=== PATIENT | female | born 1975 | race Caucasian/White ===

== ENCOUNTER 2017-11-03 11:17 | Emergency (ER) | payer OTHER ==
[~2017-11-03] VITALS: Ht 170.2 cm; Wt 83.0 kg
[~2017-11-03 11:17] MED LIST: CLINDAMYCIN HC150 M1 PO; IBUPROFEN800 MG PO; NORCO 325 MG-51 TAB PO; PERCOCET 325 MG1 TA2 PO; TORADOL10 MG PO
[2017-11-03 11:22] VITALS: BP 146/79
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
== END 2017-11-03 12:05 ==
LOC: ERH 11:17
DX: S09.90XA Unspecified injury of head, initial encounter (principal); S80.812A Abrasion, left lower leg, initial encounter; V23.4XXA Motorcycle driver injured in collision with car, pick-up truck or van in traffic accident, initial encounter
CPT/HCPCS: 99282

== ENCOUNTER 2018-01-05 17:28 | Inpatient (IN) | payer OTHER ==
[~2018-01-05] VITALS: Ht 170.2 cm; Wt 73.0 kg
[~2018-01-05 17:28] MED LIST changes: +CIPRO500 M1 PO; +FLAGYL500 MG PO; +IBUPROFEN800 M1 PO
--- NOTE | 2018-01-05 18:41 | ED GI/GU/ABDOMINAL COMPLAINT ---
History of Present Illness General Chief Complaint: General Adult Stated Complaint: +D X1 WEEK ?DEHYRDRATED/WEAK Source: patient, old records Exam Limitations: no limitations Vital Signs & Intake/Output Vital Signs & Intake/Output Vital Signs Date Time Temp Pulse Resp B/P B/P Pulse O2 O2 Flow FiO2 Mean Ox Delivery Rate 01/07 2217 97.9 85 16 108/60 96 Room Air 01/07 1432 98.0 92 18 124/70 98 Room Air 01/07 0800 Room Air 01/07 0655 98.5 91 18 114/68 95 Room Air ED Intake and Output 01/07 0000 01/06 1200 Intake Total 995 2000 Output Total Balance 995 2000 Intake, IV 875 2000 Intake, Oral 120 Number 1 Bowel Movements Patient 161 lb Weight Weight Reported by Patient Measurement Method Allergies Coded Allergies: amoxicillin (Intermediate, RASH 11/03/17) Triage Note: 42 YO FEMALE TO TRIAGE FOR EVAL OF DIRRHEA X 1 WEEK. STATES HX OF PANCERASE TRANSPLANT 1 YEAR AGO. REPORTS SHE WAS SEEN HERE LAST WEEK AND DX WITH A BACTERIAL INFECTION. REPORTS SHE IS WEAK AND HAVING DIARRHEA SINCE. BP 94/60 IN TRIAGE. PA IN TRIAGE FOR EVAL Triage Nurses Notes Reviewed? yes ? n Is pt currently ? No Onset: Gradual Duration: week(s): Timing: recent history Quality/Severity: moderate HPI: 42yo female with hx of pancreas transplant, kidney stones presents to ED complaining of persistent diarrhea x 8 days. Patient was seen here one week ago for diarrhea beginning the day she returned from the [facility]. She states that while she was on vacation she did not drink the water. Patient had abdominal CT scan at that time and was started on Cipro and Flagyl antibiotics. Patient called her transplant specialist and it was recommended that she take 3 days of antibiotics only, patient did not take full 10 day course of antibiotics. Patient states that she has had persistent diarrhea. She felt slight improvement initially with antibiotics however diarrhea is still constant , described as nonbloody. Patient has intermittent abdominal cramping sensation , currently denies abdominal pain. Patient reports intermittent fevers and chills. Patient has been able to drink liquids however has not been able to tolerate food, lack of appetite. Patient denies chest pain, dyspnea, unilateral leg swelling, hemoptysis, rash, sick contact. (Alison PAULSON,Eva Willson) Reconcile Medications Bupropion HCl (Wellbutrin Sr) 150 MG TABLET.ER 1 TAB PO QPM mental (Reported) Citalopram Hydrobromide (Celexa) 20 MG TABLET 1 TAB PO DAILY mental (Reported ) Cyanocobalamin (Vitamin B-12) (Vitamin B12) 2,500 MCG TAB.CHEW 1 TAB PO DAILY supplement (Reported) Ibuprofen 800 MG TABLET 1 TAB PO TID PRN pain/fever Loperamide HCl (Loperamide) 2 MG CAPSULE 1 TAB PO Q8P PRN DIARRHEA Mycophenolate Mofetil (Cellcept) 250 MG CAPSULE 1 CAP PO BID Pancreatic transplant (Reported) Tacrolimus (Prograf) 1 MG CAPSULE 6 CAP PO BID s/p transplant (Reported) Tacrolimus 1 MG CAPSULE 3 CAP PO BID PANCREATIC TRANSPLANT (Chandrika TODD,Jovanny Carrington) Past History Travel History Traveled to [facility] past 21 day No Medical History Any Pertinent Medical History? 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 No (Eva Almonte) Review of Systems Review of Systems Constitutional: Reports: see HPI. EENTM: Reports: no symptoms. Respiratory: Reports: no symptoms. Cardiovascular: Reports: no symptoms. GI: Reports: see HPI. Genitourinary: Reports: no symptoms. Musculoskeletal: Reports: no symptoms. Skin: Reports: no symptoms. Neurological/Psychological: Reports: no symptoms. Hematologic/Endocrine: Reports: no symptoms. Immunologic/Allergic: Reports: no symptoms. All Other Systems: Reviewed and Negative (Eva Almonte) Physical Exam Physical Exam General Appearance: well developed/nourished, no apparent distress, alert, awake Head: atraumatic, normal appearance Eyes: Bilateral: normal appearance. Ears, Nose, Throat, Mouth: hearing grossly normal Neck: normal inspection, supple, full range of motion Respiratory: normal breath sounds, no respiratory distress, lungs clear Cardiovascular: tachycardia Gastrointestinal: normal bowel sounds, soft, non-tender, no organomegaly Back: normal inspection, normal range of motion Extremities: normal range of motion Neurologic/Psych: awake, alert, oriented x 3 Skin: intact, normal color, warm/dry Core Measures ACS in differential dx? No Sepsis Present: Yes Sepsis Focused Exam Completed? Yes (Eva Almonte) ED Sepsis Exam Date of Focused Sepsis Exam: 01/05/18 Time of Focused Sepsis Exam: 2129 Sepsis Cardiac Exam: Tachycardia Sepsis Resp Exam: CTA Sepsis Cap Refill Exam: <2 Sec Sepsis Peripheral Pulse Exam: Normal Sepsis Peripheral Pulse Location: Radial Sepsis Skin Color Exam: Normal for Ethnicity Skin Temp/Moisture Exam: Warm/Dry (Eva Almonte) Progress Differential Diagnosis: bowel obstruction, diverticulitis, gastritis, inflamm bowel dis, SBO, UTI/pyelo, c diff, colitis, gastroenteritis, infectious diarrhea , sepsis Plan of Care: Orders Procedure Date/time Status Nothing by Mouth 01/08 B Active BASIC ELECTROLYTES PLUS BUN&CR 01/08 0600 Active Consistent Carbohydrate 1 01/07 B Complete Lab Add-on Test 01/07 1631 Active Hemoccult 01/07 1631 Active OVA AND PARASITE EXTENDED 01/07 1631 Active Lab Add-on Test 01/07 UNK Active Current Medications Sig/Jaqui Start time Last Medication Dose Stop Time Status Admin Tacrolimus 6 MG BID 01/07 2100 AC 01/07 (Prograf 1MG) 2044 Polyethylene Glycol 0.5 GAL 1700,0400 01/07 1730 AC 01/07 (Golytely Liq 4000 01/08 0401 1826 Ml) Prednisone 5 MG DAILY 01/07 1730 AC 01/07 1826 Loperamide HCl 2 MG Q6P PRN 01/07 1100 AC 01/07 (Imodium) 1556 Bupropion HCl 150 MG QPM 01/06 2100 AC 01/07 (Wellbutrin SR) 2044 Citalopram 20 MG DAILY 01/06 0900 AC 01/07 Hydrobromide 0930 (Celexa) Mycophenolate Mofetil 250 MG BID 01/06 0900 AC 01/07 (CellCept) 2044 Heparin Sodium 5,000 UNIT Q8 01/06 0600 AC 01/07 (Porcine) 1435 Acetaminophen 650 MG Q6P PRN 01/06 0045 AC (Tylenol) Acetaminophen 1,000 MG Q6P PRN 01/06 0045 AC (Ofirmev) Laboratory Tests 01/07/18 0715: Anion Gap 12, Estimated GFR 29 L, BUN/Creatinine Ratio 23.2, Phosphorus 4.1, Magnesium 2.0 01/07/18 0610: CBC w Diff NO MAN DIFF REQ, RBC 4.04 L, MCV 83.3, MCH 28.7, MCHC 34.5, RDW 13.4 , MPV 8.4, Gran % 78.4 H, Lymphocytes % 13.8 L, Monocytes % 5.6, Eosinophils % 2.1, Basophils % 0.1, Absolute Granulocytes 4.5, Absolute Lymphocytes 0.8 L, Absolute Monocytes 0.3, Absolute Eosinophils 0.1, Absolute Basophils 0 01/06/18 2355: Tacrolimus Pending Microbiology 01/07 1631 STOOL: Ova and Parasite Macroscopic Exam - COLB Patient arrives pretensive and tachycardic. Vital signs meets SIRS criteria. Patient given fluid bolus while labs are pending. Labs reveal acute kidney injury, elevated lactic acid, leucytosis. Findings are consistent with severe sepsis. Patient seen and evaluated by Dr. Cobos. Will initiate ceftriaxone and Flagyl to cover for GI source of her sepsis. Spoke with Dr. Palmer who recommends CT scan of abdomen and pelvis prior to admission to general medicine. The patient was signed out to Dr. Del Real pending CT abdomen and pelvis, urinalysis, general medicine admission. Initial ED EKG: SINUS TACHYCARDIA @109BPM, LAFB, NONSPECIFIC ST CHANGES Prior EKG: changed (12/28/14) Hand-Off Endorsed To: Gt TODD,Fazal Padgett Endorsed Time: 2252 Pending: CT, labs (Alison PAULSON,Eva Willson) Comments: 01/05/2018 9:57:48 PM Jorge L blood pressure has responded well to IV fluid bolusing and is now normal. 01/05/2018 11:18:25 PM patient's case discussed with Dr. Lopez who requested a noncontrast CAT scan prior to admission. 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 (Chandrika TODD,Jovanny Carrington) Departure Departure Disposition: STILL A PATIENT Condition: Stable Referrals: Alfredo Hawley MD (PCP/Family) Departure Forms: Customer Survey General Discharge Information Admission Note Documentation of Exam: Documentation of any treatments & extenuating circumstances including Concerns Regarding Discharge (functional status, medication knowledge or non-compliance, living conditions, etc.) that warrant an admission rather than observation: [ Patient with anterior for septic shock upon initial presentation with hypotension, tachycardia, elevated lactic acid, likely GI source of infection, patient requires IV fluids, broad-spectrum IV antibiotics, infectious disease consult, possible GI consult, owing up with blood cultures, following up with stool/C. difficile cultures, premature discharge medically unsafe] (Alison PAULSON,Eva Willson) Departure Prescriptions: Current Visit Scripts Loperamide HCl (Loperamide) 1 TAB PO Q8P PRN DIARRHEA #12 TAB Tacrolimus 3 CAP PO BID #30 CAP PA/SENIOR UI UX DEVELOPER Co-Sign Statement Statement: ED Attending supervision documentation- [X] I saw and evaluated the patient. I have also reviewed all the pertinent lab results and diagnostic results. I agree with the findings and the plan of care as documented in the PA's/SENIOR UI UX DEVELOPER's documentation. [] I have reviewed the ED Record and agree with the PA's/SENIOR UI UX DEVELOPER's documentation. [] Additions or exceptions (if any) to the PAs/SENIOR UI UX DEVELOPER's note and plan are summarized below: [] (Chandrika TODD,Jovanny Carrington) Departure Clinical Impression Primary Impression: Sepsis Qualifiers: Sepsis type: sepsis due to unspecified organism Qualified Code: A41.9 - Sepsis, unspecified organism Secondary Impressions: TOM (acute kidney injury) Diarrhea Qualifiers: Diarrhea type: infectious Qualified Code: A09 - Infectious gastroenteritis and colitis, unspecified Enteritis Comments PATIENT: PATT ZUNIGA PRESENT AGE: 42 PATIENT ACCOUNT NO: [id number] : 75 LOCATION: [facility] ORDERING PHYSICIAN: Jovanny Cobos MD SERVICE DATE: 01/05/18 EXAM TYPE: CAT - CT ABD & PELVIS W/O IV CONTRAS EXAMINATION: CT ABDOMEN AND PELVIS WITHOUT CONTRAST CLINICAL INFORMATION: Diarrhea. Sepsis. COMPARISON: 12/29/2017 TECHNIQUE: Multidetector volumetric imaging was performed from the superior aspect of the liver through the pubic symphysis. Sagittal and coronal reformatted images were obtained on the technologist's workstation. DLP: 351 mGy-cm FINDINGS: LUNG BASES: The lung bases are clear. There is a small pericardial effusion seen anteriorly. This is slightly increased compared to prior. LIVER, GALLBLADDER, AND BILIARY TREE: The liver is normal in size, shape, and attenuation. No focal hepatic lesion or biliary ductal dilatation is present. The gallbladder is unremarkable with no evidence of radiopaque gallstones, gallbladder wall thickening, or obvious pericholecystic inflammatory changes. PANCREAS: Unremarkable. SPLEEN: Unremarkable. ADRENAL GLANDS: Unremarkable. KIDNEYS AND URETERS: The kidneys are normal in size, shape, and attenuation. There is no hydronephrosis or hydroureter. Redemonstration of right upper pole renal calculi. The largest measures 0.7 cm, 6.5 cm from the posterior axillary line, measuring approximately 800 Hounsfield units. BLADDER: Decompressed with no gross abnormality. GASTROINTESTINAL TRACT: Postsurgical changes status post Rosanna-en-Y gastric bypass. There is no evidence of obstruction. The small bowel is normal in caliber. The colon is somewhat gas and fluid-filled throughout. Mild wall thickening of small bowel within the pelvis. Additional small bowel anastomosis noted in the right lower quadrant. ABDOMINAL WALL: No significant hernia is appreciated. LYMPH NODES: Normal. VASCULAR: Unremarkable. PELVIC VISCERA: Unremarkable. OSSEOUS STRUCTURES: No acute or suspicious osseous abnormality. IMPRESSION: Mild wall thickening of small bowel within the pelvis may represent enteritis. No bowel obstruction. Small pericardial effusion anteriorly. This is slightly increased from the prior study. Nonobstructing right renal calculi. DICTATED BY: Gaurav Stewart MD DATE/TIME DICTATED:01/05/182335 INTERNATIONAL GUEST COORDINATOR:CHOLO DATE/TIME TRANSCRIBED:01/05/182335 CONFIDENTIAL, DO NOT COPY WITHOUT APPROPRIATE AUTHORIZATION. <Electronically signed in Other Vendor System> SIGNED BY: Gaurav Stewart MD 01/05 9233 (Fazal Del Real MD) Critical Care Note Critical Care Note Critical Care Time: 75-104 min (Eva Almonte) CONFIDENTIAL, DO NOT COPY WITHOUT APPROPRIATE AUTHORIZATION. <Electronically signed in Other Vendor System> SIGNED BY: Gaurav Stewart MD 01/05 1498 (Fazal Del Real MD) Critical Care Note Critical Care Note Critical Care Time: 75-104 min (Eva Almonte)
[2018-01-05 19:24] LABS: ABSOLUTE BASOPHIL COUNT 0 /CUMM (0.0-0.2); ABSOLUTE EOSINOPHIL COUNT 0 /CUMM (0.0-0.7); ABSOLUTE GRANULOCYTE CT 18.3 /CUMM (1.4-6.5); ABSOLUTE LYMPH COUNT 0.7 /CUMM (1.2-3.4); ABSOLUTE MONOCYTE COUNT 0.6 /CUMM (0.10-0.60); BASOPHIL % 0 % (0.0-2.0); EOSINOPHIL % 0 % (0-5); GRANULOCYTE % 93.4 % (42.2-75.2); MEAN CORPUSCULAR HGB 28.5 PG (27.0-31.0); MEAN CORPUSCULAR HGB CONC 33.7 G/DL (33.0-37.0); MEAN CORPUSCULAR VOLUME 84.5 FL (81.0-99.0); MEAN PLATELET VOLUME 8.3 FL (7.4-10.4); PLATELET COUNT 476 /CUMM (130-400); RBC DISTRIBUTION WIDTH 13.4 % (11.5-14.5); RED BLOOD CELL CT 6.04 /CUMM (4.20-5.40); WHITE BLOOD CELL COUNT 19.6 /CUMM (4.8-10.8)
--- NOTE | 2018-01-05 23:47 | CT SCAN REPORT ---
EXAMINATION: CT ABDOMEN AND PELVIS WITHOUT CONTRAST CLINICAL INFORMATION: Diarrhea. Sepsis. COMPARISON: 12/29/2017 TECHNIQUE: Multidetector volumetric imaging was performed from the superior aspect of the liver through the pubic symphysis. Sagittal and coronal reformatted images were obtained on the technologist's workstation. DLP: 351 mGy-cm FINDINGS: LUNG BASES: The lung bases are clear. There is a small pericardial effusion seen anteriorly. This is slightly increased compared to prior. LIVER, GALLBLADDER, AND BILIARY TREE: The liver is normal in size, shape, and attenuation. No focal hepatic lesion or biliary ductal dilatation is present. The gallbladder is unremarkable with no evidence of radiopaque gallstones, gallbladder wall thickening, or obvious pericholecystic inflammatory changes. PANCREAS: Unremarkable. SPLEEN: Unremarkable. ADRENAL GLANDS: Unremarkable. KIDNEYS AND URETERS: The kidneys are normal in size, shape, and attenuation. There is no hydronephrosis or hydroureter. Redemonstration of right upper pole renal calculi. The largest measures 0.7 cm, 6.5 cm from the posterior axillary line, measuring approximately 800 Hounsfield units. BLADDER: Decompressed with no gross abnormality. GASTROINTESTINAL TRACT: Postsurgical changes status post Rosanna-en-Y gastric bypass. There is no evidence of obstruction. The small bowel is normal in caliber. The colon is somewhat gas and fluid-filled throughout. Mild wall thickening of small bowel within the pelvis. Additional small bowel anastomosis noted in the right lower quadrant. ABDOMINAL WALL: No significant hernia is appreciated. LYMPH NODES: Normal. VASCULAR: Unremarkable. PELVIC VISCERA: Unremarkable. OSSEOUS STRUCTURES: No acute or suspicious osseous abnormality. IMPRESSION: Mild wall thickening of small bowel within the pelvis may represent enteritis. No bowel obstruction. Small pericardial effusion anteriorly. This is slightly increased from the prior study. Nonobstructing right renal calculi.
--- NOTE | 2018-01-05 23:58 | History & Physical ---
Mago Leon 01/05/18 8967: General Information and HPI MD Statement: I have seen and personally examined PATT LANCE and documented this H&P. The patient is a 42 year old F who presented with a patient stated chief complaint of [Diarrhea]. Source of Information: patient, old records Exam Limitations: no limitations History of Present Illness: Ms. Lance is a 42yo F w/ PMH of pancreas transplant, kidney stones presented to ER w/ CC of counts include [facility] beds at [facility] [place] [facility] [place] [facility] [place] [facility] [place]. During the trip patient had no illness/insect bite/unusual food intake. None of the friends within her group got sick as well. She returned about a week ago, and then developed abdominal discomfort in center of abdomen, no radiation, and endorsed nonbloody diarrhea 5-6x/day. She was seen in [place] ER on 12/29/2017 and was given ABX however no resolution of symptoms. Now she presented with similar complain, and increased thirst. During our clinical interaction, patient denied recent travel/sick contacts, fever/lightheadedness/diaphoresis/night sweat/weight change/cough/SOB/Chest Pain /Palpitation/urinary abnormality, or other skin/musculoskeletal/neurological/ mood disorders, or dietary/appetite change. Allergies/Medications Allergies: Coded Allergies: amoxicillin (Intermediate, RASH 11/03/17) Home Med list Bupropion HCl (Wellbutrin Sr) 150 MG TABLET.ER 1 TAB PO QPM mental (Reported) Citalopram Hydrobromide (Celexa) 20 MG TABLET 1 TAB PO DAILY mental (Reported ) Cyanocobalamin (Vitamin B-12) (Vitamin B12) 2,500 MCG TAB.CHEW 1 TAB PO DAILY supplement (Reported) Ibuprofen 800 MG TABLET 1 TAB PO TID PRN pain/fever Mycophenolate Mofetil (Cellcept) 250 MG CAPSULE 1 CAP PO BID Pancreatic transplant (Reported) Tacrolimus (Prograf) 1 MG CAPSULE 6 CAP PO BID s/p transplant (Reported) Past History Travel History Traveled to [place] past 21 day No Medical History Neurological: NONE EENT: NONE Cardiovascular: NONE Respiratory: NONE Gastrointestinal: PANCREAS TRANSPLANT Hepatic: NONE Renal: KIDNEY STONES Musculoskeletal: NONE Psychiatric: NONE Endocrine: iddm Blood Disorders: NONE Cancer(s): NONE 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 Exam & Diagnostic Data Last 24 Hrs of Vital Signs/I&O Vital Signs Date Time Temp Pulse Resp B/P B/P Pulse O2 O2 Flow FiO2 Mean Ox Delivery Rate 01/05 2126 97.9 85 14 107/55 99 Room Air 01/05 1933 Room Air 01/06 1932 98.9 112 16 98/59 98 Room Air 01/05 1733 99.4 120 18 94/60 99 Room Air Physical Exam General Appearance Alert, Oriented X3, Cooperative, No Acute Distress Skin No Rashes, No Breakdown, No Significant Lesion, tatoo on back/bilateral arms sunburns on back Skin Temp/Moisture Exam: Warm/Dry Sepsis Skin Exam (color): Normal for Ethnicity HEENT Atraumatic, PERRLA Neck Supple, No JVD Cardiovascular Regular Rate, Normal S1, Normal S2 Lungs Clear to Auscultation, Normal Air Movement Abdomen Soft, hypoactive BS mild tenderness on lower ab on palpation Neurological Normal Speech, Strength at 5/5 X4 Ext, Normal Tone, Sensation Intact Extremities No Edema, Normal Pulses, No Tenderness/Swelling Last 24 Hrs of Labs/Elan: Laboratory Tests 01/05/182329: Urine Test NEGATIVE 01/05/182329: Urine Opiates Screen < 100, Methadone Screen < 40, Barbiturate Screen < 60, Ur Phencyclidine Scrn < 6.00, Amphetamines Screen 208, U Benzodiazepines Scrn < 85, Urine Cocaine Screen < 50, Urine Cannabis Screen < 5.00, Urinalysis MOD H, Urine Color ZACHARIAH, Urine Clarity HAZY H, Urine pH 6.0, Ur Specific [place] >= 1.030, Urine Protein 30 H, Urine Ketones TRACE H, Urine Nitrite NEG, Urine Bilirubin NEG@ICTO, Urine Urobilinogen 0.2, Ur Leukocyte Esterase TRACE H, Ur Microscopic SEDIMENT EXAMINED, Urine RBC 1-3, Urine WBC 10-15 H, Ur Epithelial Cells MOD H, Urine Crystals 3+ CA OX H, Urine Bacteria MOD H, Hyaline Casts MANY H, Urine Mucus MOD H, Urine Hemoglobin NEG, Urine Glucose NEG 01/05/18 1907: Anion Gap 23 H, Estimated GFR 16 L, BUN/Creatinine Ratio 13.1, Glucose 116 H, Lactic Acid 2.2 H, Calcium 9.7, Phosphorus 7.6 H, Magnesium 1.5 L, Total Bilirubin 0.7, AST 23, ALT 33, Alkaline Phosphatase 57, Troponin I < 0.01, Total Protein 7.5, Albumin 4.4, Globulin 3.1, Albumin/Globulin Ratio 1.4, Lipase 133 01/05/18 1907: Sodium Cancelled, Potassium Cancelled, Chloride Cancelled, Carbon Dioxide Cancelled, Anion Gap Cancelled, BUN Cancelled, Creatinine Cancelled, BUN/ Creatinine Ratio Cancelled, Glucose Cancelled, Calcium Cancelled, Total Bilirubin Cancelled, AST Cancelled, ALT Cancelled, Alkaline Phosphatase Cancelled, Total Protein Cancelled, Albumin Cancelled, Globulin Cancelled, Albumin/Globulin Ratio Cancelled, Lipase Cancelled, CBC w Diff MAN DIFF ORDERED, RBC 6.04 H, MCV 84.5, MCH 28.5, MCHC 33.7, RDW 13.4, MPV 8.3, Gran % 93.4 H, Lymphocytes % 3.5 L, Monocytes % 3.1, Eosinophils % 0, Basophils % 0, Absolute Granulocytes 18.3 H, Segmented Neutrophils 76 H, Band Neutrophils 13 H, Absolute Lymphocytes 0.7 L, Lymphocytes 6 L, Monocytes 5, Absolute Monocytes 0.6, Absolute Eosinophils 0, Absolute Basophils 0, Platelet Estimate INCREASED, Poikilocytosis 1+ 01/05/18 1736: Phosphorus Cancelled, Magnesium Cancelled Microbiology 01/05 1938 STOOL: Cryptosporidium Antigen - ORD 01/05 1938 STOOL: Giardia Antigen (ELAN) - ORD 01/05 1938 STOOL: Clostridium difficile Toxin A & B - ORD 01/05 1938 STOOL: Stool Culture - ORD Assessment/Plan Assessment: On admission, Vitals: Stable afebrile, Tachycardia 120 ->85, RR 18->14, hypotensive 94/50 -> 107/55, 99% on RA -CBC: Leukocytosis 19.6, H/H 17.2/51.0, PLT 476, likely hemoconcentration from dehydration, taking into account of hypotension -BMP: Na 132, Cr 3.2 TOM, Lactic acidosis 2.2, AG 23, Mg 1.5 -UA/Microbiology: grossly -ve for UTI -Ab CT: Mild wall thickening of small bowel within the pelvis may represent enteritis. No bowel obstruction. Small pericardial effusion anteriorly. This is slightly increased from the prior study. Nonobstructing right renal calculi. -EKG: NSR w/o significant ST-T abnormalities. -Interventions in ER: Problem list/Assessment/Hospital Course: #Acute gastroenteritis, likely viral based on travel/symptoms/imaging #Sever Sepsis (tachycardia, leukocytosis, source of infection, lactic acidosis) #Lactic Acidosis #TOM 2/2 dehydration #Hypovolemic Hyponatremia #Hypomagnesemia #PMH of pancrease transplant. - Admit to General Medicine, vitals per protocol - Watch off antibiotics for now, and if fever/clinical worsening/more diarrhea, will start antibiotics - Continuous IVF with normal saline 125cc/hr. - Pending stool/blood cultures - Continue home meds including prograf and cellcept - Will keep NPO overnight and gradually advance diet. - Pain/fever per tylenol PO/IV as needed. DVT prophylaxis Pharm PPX + ALPS NPO Full Code As Ranked By This Provider Problem List: 1. TOM (acute kidney injury) 2. Diarrhea Qualifiers Diarrhea type: infectious Qualified Code: A09 - Infectious gastroenteritis and colitis, unspecified 3. Sepsis Qualifiers Sepsis type: sepsis due to unspecified organism Qualified Code: A41.9 - Sepsis, unspecified organism 4. Gastroenteritis Core Measures/Misc (04/26) Acute Coronary Syndrome ACS Diagnosis: No Congestive Heart Failure Congestive Heart Failure Diagnosis No Cerebrovascular Accident CVA/TIA Diagnosis: No VTE (View Protocol) VTE Risk Factors Age>40 No Mechanical VTE Prophylaxis d/t N/A MechProphylax Ordered No VTE Pharm Prophylaxis d/t NA PharmProphylax ordered Sepsis (View protocol) Sepsis Present: Yes If YES complete Sepsis Event Note If YES complete Sepsis Event Note Inessa Lozoya 01/06/18 0343: Core Measures/Misc (04/26) Sepsis (View protocol) If YES complete Sepsis Event Note If YES complete Sepsis Event Note Resident Review Statement Resident Statement: examined this patient, discussed with internet designer Other Findings: Ms Lance is a 42 year old woman w/ a PMHx of type 1 DM, pancreatic transplantation at [facility] in 2017, nephrolithiasis came to the ER w/ a chief concern of diarrhea that started one day after she returned from a trip to [facility] [place]. [place] and did not report any illness, insect bite, unuaual food intake, or symptoms while she was traveling. On the day she returned, which was one week ago, she developed abdominal discomfort located in the center of the abdomen w/ no radiation, associated w/ multiple episodes of diarrhea upto 5-6x per day. She was seen in [place] ER on 11/29/17 and was prescribed abx without resolution of symptoms. She returned to the ER w/ concerns of adbominal discomfort, diarrhea, and occassional chills. She reported no changes in apetite, but reported increased thirst. No chest pain , SOB, palpitations. No rash, myalgias, joint pain, AMS. No hematurea, or eboni , brpbr. No report of any unsafe sexual practices. No jaundice, pedal edema. No report of other co-travelers being sick. Vitals at the time of admission, temperature 99.4, pulse rate 120--85, respiration 18, blood pressure 94-60, 99% on room air. Pertinent lab findings: WBC 19.6 (93% granulocytes, 13 bands), hemoglobin 17.2, hematocrit 51.0 (severe hemoconcentration), platelet count 476 Sodium 132, potassium 3.9, chloride 97, bicarbonate 12, anion gap 23 (anion gap metabolic acidosis) BUN 42, creatinine 3.2 ( 11/29- Sr 1.0) Glucose 116, lactic acid 2.2 Phosphorus 7.6, magnesium 1.5 Liver chemistries-AST 23, ALT 33, alkaline phosphatase 57 Urinalysis revealed protein greater than 30, ketones trace, urine nitrite negative, WBC 10-15, moderate epithelial cells, 3+ calcium oxalate crystals, many hyaline casts. U tox negative for opiates, methadone. CT abdomen 01/05/18 Mild wall thickening of small bowel within the pelvis may represent enteritis. No bowel obstruction. Small pericardial effusion anteriorly. This is slightly increased from the prior study. Nonobstructing right renal calculi. Etiology in her case of diarrhea after traveling to a [place], was most likely attributed to travelers diarrhea leading to enteritis. Most likely organisms in such case is norovirus, but given her protracted symptoms other bacterial causes are not completely ruled out such as Escherichia coli, Shigella , Giardia, Campylobacter. Severe diarrhea, must have caused loss of bicarbonate , that resulted most likely in anion gap metabolic acidosis, and there could be some contribution from lactic acid, and other anion such as sulphtes/phosphates. She likely is not able to compensate w/ kidney for the GI losses of bicarb, and NS infusion can only make it worse. She also had acute kidney injury, most likely from dehydration that may have resulted in severe hemoconcentration. Also noted that she had hypovolemic hyponatremia, and severe electrolyte abnormalities such as hyperphosphatemia and hypermagnesemia. Given the seriousness of intestinal pathogenic Ecoli such as shigatoxin producing, or hemorrhagic Ecoli cultures should be followed and monitored for symptoms of anemia, thrombocytopenia and worsening kidney function, which is seen in upto 10 % of patients. Problem list: 1. Anion gap metabolic acidosis 2. Enteritis secondary to travelers diarrhea 3. Hypovolemic hyponatremia 4. TOM 5. History of Type 1 Diabetes 6. Sepsis 8. Diarrhea 9. Nephrolithiasis 10.Lactic acidosis 11. h/o pancreatic transplantation on mycophenolate+tacrolimus. Plan: #Admit the pt to gen med #Follow stool cultures, Ova and parasites. #Blood cultures #No abx at this time. #Urine lytes, FeNa, serum osmolality, urine osmolality, and consider checking urine potassium, urine chloride, and stool electrolytes for calculating the urine and stool osm gaps. #Aggressive fluid resuscitation, with normal saline. Recheck sodium in the a.m. #Recheck electrolytes including potassium, magnesium, phosphorus in the a.m. #Follow kidney function in a.m. #Continue antirejection medications. Ensure that these medications are not discontinued. #Follow lactic acid #Continue Wellbutrin and Celexa at this time. #Check C. difficile, although less likely. Consider starting loperamide after reviewing results of stool cultures, and parasite Housekeeping checklist: #1 DVT PPx- sc heparin #2 GI prophylaxis-Protonix when necessary #3 CODE STATUS-full code #4 medication reconciliation-completed. #5 Consults-none. John TODD, [facility] 01/06/18 0442: Core Measures/Misc (04/26) Sepsis (View protocol) If YES complete Sepsis Event Note If YES complete Sepsis Event Note Attending MD Review Statement Attending Statement Attending MD Statement: examined this patient, discuss w/resident/PA/COMMUNITY SERVICE PATROL OFFICER, agreed w/resident/PA/COMMUNITY SERVICE PATROL OFFICER, reviewed images, amended to note Attending Assessment/Plan: 42 yo F with h/o T1DM previously on insulin pump, now s/p pancreas transplant ( Sep 2016) at [facility], is here for evaluation of persistent diarrhea and abdominal pain. She returned on December 28 after a 1 week trip at [facility]. She reports eating shrimp on the last day at [facility]. No one else ate the same food. She started developing abdominal pain while on the plane. She was seen in ER on December 29 for abdominal pain and diarrhea CT was nonspecific, she was discharged on Cipro-flagyl for ?gastroenteritis. Patient took only 3 days worth of antibiotics as per her transplant specialist recommendations. However, her symptoms did not improve, she continues to have profuse nonbloody diarhhea. No sick contact or insect/ tick bites. Vitals stable. Exam as above. Labs: WBC 19.6, H/H 17.2/51, Plt 476, bands 13, Na 132, bicarb 12, AG 23, BUN 42, Creat 3.2 (baseline 0.6-1.0), glucose 116, lactic acid 2.2, Mag 1.5, phosphorus 7.6, trop neg. UA not impressive for UTI, Utox negative. CT abd/pelvis: mild wall thickening of small bowel enteritis. No bowel obstruction. Nonobstructing renal calculi. EKG sinus tachycardia, LAFB, Qtc 415. Assessment and plan: 1. Acute viral gastroenteritis 2. Severe volume depletion, dehydration 3. TOM 4. High anion gap metabolic acidosis lactic acidosis and renal failure 5. Hypomagnesemia, hyponatremia 6. H/o pancreas transplant - Admit to General medicine - Obtain stool Cdiff, cultures, ova and parasites - Aggressive fluid resuscitation, trend lactic acid - Anti-emetic PRN - Can add loperamide once Cdiff negative - Watch off antibiotics as viral gastroenteritis generally resolves in 2 weeks - Replete electrolytes - Check urine lytes and osmolality, trend renal functions - Resume transplant medications in AM DVT ppx Hep SC. Full code. - Can add loperamide once Cdiff negative - Watch off antibiotics as viral gastroenteritis generally resolves in 2 weeks - Replete electrolytes - Check urine lytes and osmolality, trend renal functions - Resume transplant medications in AM DVT ppx Hep SC. Full code.
[2018-01-06] MEDS ORDERED: CELLCEPT250 MG PO (00:46)
[2018-01-06] MEDS ORDERED: PROGRAF1 M1 PO (00:46)
[2018-01-06] MEDS ORDERED: WELLBUTRIN SR150 M1 PO (00:47)
[2018-01-06] MEDS ORDERED: CELEXA20 M1 PO (00:47)
[2018-01-06] MEDS ORDERED: VITAMIN B122500 MC2 PO (00:48)
--- NOTE | 2018-01-06 04:47 | Admission Certification ---
Admission Certification Certification Statement - As attending physician, I certify that at the time of - admission, based on clinical presentation, severity of - symptoms, need for further diagnostic testing and - therapeutic interventions, and risk of adverse outcomes - without in-hospital treatment, in my clinical assessment, - this patient requires an acute hospital stay for a minimum - of two nights or longer. I have also considered psychsocial - factors such as support system, advanced age, financial - issues, cognitive issues, and failed out-patient treatments, - past re-admission history, safety of patient, and lack of - compliance as applicable. Specific rationale supporting this admission is: Acute gastroenteritis.
[2018-01-06 05:47] LABS: ABSOLUTE BASOPHIL COUNT 0 /CUMM (0.0-0.2); ABSOLUTE EOSINOPHIL COUNT 0 /CUMM (0.0-0.7); ABSOLUTE GRANULOCYTE CT 14.5 /CUMM (1.4-6.5); ABSOLUTE LYMPH COUNT 0.6 /CUMM (1.2-3.4); ABSOLUTE MONOCYTE COUNT 0.4 /CUMM (0.10-0.60); BASOPHIL % 0 % (0.0-2.0); EOSINOPHIL % 0.1 % (0-5); GRANULOCYTE % 93.2 % (42.2-75.2); MEAN CORPUSCULAR HGB 29.1 PG (27.0-31.0); MEAN CORPUSCULAR HGB CONC 34.2 G/DL (33.0-37.0); MEAN CORPUSCULAR VOLUME 85.2 FL (81.0-99.0); MEAN PLATELET VOLUME 8.6 FL (7.4-10.4); PLATELET COUNT 336 /CUMM (130-400); RBC DISTRIBUTION WIDTH 13.6 % (11.5-14.5); WHITE BLOOD CELL COUNT 15.6 /CUMM (4.8-10.8)
[2018-01-06 05:56] LABS: HEMATOCRIT 38.2 % (37-47); RED BLOOD CELL CT 4.48 /CUMM (4.20-5.40)
--- NOTE | 2018-01-06 09:57 | PN- Housestaff ---
Rashad TODD,[facility] 01/06/18 0956: Subjective Follow-up For: Acute viral gastroenteritis TOM History of pancreatic transplant Subjective: Patient seen and examined. Resting comfortably. She continues to have multiple diarrheal episodes. However no blood noticed. History of colonoscopy in the past she has history of gastric bypass surgery and believes that it might be related to that. No history of IBD in the family Review of Systems Constitutional: Reports: see HPI. Objective Last 24 Hrs of Vital Signs/I&O Vital Signs Date Time Temp Pulse Resp B/P B/P Pulse O2 O2 Flow FiO2 Mean Ox Delivery Rate 01/06 1345 98.0 87 16 110/60 99 01/06 1141 97.7 87 20 112/66 99 Room Air 01/06 1130 97.7 87 20 112/66 01/06 0726 97.6 97 18 126/68 99 Room Air 01/06 0110 98.5 99 18 130/69 99 Room Air 01/05 2126 97.9 85 14 107/55 99 Room Air 01/05 1933 Room Air 01/05 1932 98.9 112 16 98/59 98 Room Air 01/05 1733 99.4 120 18 94/60 99 Room Air Intake & Output 01/06 1600 01/06 0800 01/06 0000 Intake Total 1999 1000 Output Total Balance 1999 1000 Intake, IV 1999 1000 Patient 161 lb 161 lb Weight Weight Reported by Patient Reported by Patient Measurement Method Physical Exam General Appearance: Alert, Oriented X3, Cooperative Cardiovascular: Normal S1, Normal S2 Lungs: Clear to Auscultation Abdomen: Normal Bowel Sounds, Soft, No Tenderness Neurological: Normal Speech Current Medications: Current Medications Sig/Jaqui Start time Last Medication Dose Route Stop Time Status Admin Acetaminophen 650 MG Q6P PRN 01/06 0045 AC PO Acetaminophen 1,000 MG Q6P PRN 01/06 0045 AC IV Bupropion HCl 150 MG QPM 01/06 2100 AC PO Ceftriaxone Sodium 0 .STK-MED ONE 01/05 2214 DC .ROUTE Ceftriaxone Sodium 1,000 MG ONCE ONE 01/05 2115 DC 01/05 IV 01/05 Citalopram 20 MG DAILY 01/06 0900 AC 01/06 Hydrobromide PO 0922 Dextrose/Sodium 1,000 ML .Q10H 01/06 0030 DC Chloride IV Heparin Sodium 5,000 UNIT Q8 01/06 0600 AC (Porcine) SC Loperamide HCl 2 MG Q8P PRN 01/06 0030 DC PO Magnesium Sulfate 1 GM Q2H 01/06 0830 DC 01/06 Dextrose/Water 100 ML IV 01/06 1229 0948 Metronidazole 500 MG ONCE ONE 01/05 2115 DC 01/05 N/A 1 UNIT IV 01/05 2214 2210 Mycophenolate Mofetil 250 MG BID 01/06 0900 AC 01/06 PO 0922 Non-Formulary 0 SEE ADMIN CRITERIA 01/06 0815 CAN Medication ANY Potassium Chloride 0 .STK-MED ONE 01/06 0928 DC PO Potassium Chloride 40 MEQ ONCE ONE 01/06 08 DC 01/06 PO 01/06 0831 0922 Sodium Bicarbonate 150 MEQ CONTINOUS INFUSION 01/06 1045 AC 01/06 Dextrose/Water 1,000 ML IV 1230 Sodium Bicarbonate 75 MEQ ONCE ONE 01/06 0845 DC 01/06 Sodium Chloride 1,000 ML IV 01/06 1844 1027 Sodium Chloride 1,000 ML Q13H 01/06 0645 DC IV Sodium Chloride 1,000 ML Q8H 01/06 0100 DC 01/06 IV 01/06 1659 0301 Sodium Chloride 2,190.84 ML ONCE ONE 01/05 2100 DC 01/05 IV 01/05 2101 2104 Sodium Chloride 1,000 ML BOLUS ONE 01/05 1845 DC 01/05 IV 01/05 1944 1926 Tacrolimus 6 MG BID 01/06 09 AC 01/06 PO 0922 Last 24 Hrs of Lab/Elan Results Last 24 Hrs of Labs/Mics: Laboratory Tests 01/06/18 1235: Anion Gap 16, Estimated GFR 26 L, BUN/Creatinine Ratio 19.0, Phosphorus 5.2 H, Magnesium 2.0 01/06/18 1000: Sodium Cancelled, Potassium Cancelled, Chloride Cancelled, Carbon Dioxide Cancelled, Anion Gap Cancelled, BUN Cancelled, Creatinine Cancelled, BUN/ Creatinine Ratio Cancelled 01/06/18 0529: Lactic Acid 0.6 L 01/06/18 0529: Anion Gap 17 H, Estimated GFR 26 L, BUN/Creatinine Ratio 19.5, Serum Osmolality 287, Phosphorus 5.4 H, Magnesium 1.4 L, CBC w Diff MAN DIFF ORDERED , RBC 4.48, MCV 85.2, MCH 29.1, MCHC 34.2, RDW 13.6, MPV 8.6, Gran % 93.2 H, Lymphocytes % 3.8 L, Monocytes % 2.9, Eosinophils % 0.1, Basophils % 0, Absolute Granulocytes 14.5 H, Segmented Neutrophils 87 H, Band Neutrophils 4, Absolute Lymphocytes 0.6 L, Lymphocytes 4 L, Monocytes 5, Absolute Monocytes 0.4, Absolute Eosinophils 0, Absolute Basophils 0, Platelet Estimate ADEQUATE, Polychromasia 1+, Poikilocytosis 1+, Ovalocytes 1+, Selfridge Cells FEW, Elliptocytes FEW, Fld Total RBCs Counted 100 01/05/182329: Urine Test NEGATIVE 01/05/182329: Urinalysis MOD H, Urine Color ZACHARIAH, Urine Clarity HAZY H, Urine pH 6.0, Ur Specific [place] >= 1.030, Urine Protein 30 H, Urine Ketones TRACE H, Urine Nitrite NEG, Urine Bilirubin NEG@ICTO, Urine Urobilinogen 0.2, Ur Leukocyte Esterase TRACE H, Ur Microscopic SEDIMENT EXAMINED, Urine RBC 1-3, Urine WBC 10 -15 H, Ur Epithelial Cells MOD H, Urine Crystals 3+ CA OX H, Urine Bacteria MOD H, Hyaline Casts MANY H, Urine Mucus MOD H, Urine Hemoglobin NEG, Urine Glucose NEG 01/05/182329: Urine Opiates Screen < 100, Methadone Screen < 40, Barbiturate Screen < 60, Ur Phencyclidine Scrn < 6.00, Amphetamines Screen 208, U Benzodiazepines Scrn < 85, Urine Cocaine Screen < 50, Urine Cannabis Screen < 5.00, Urine Osmolality 389, Ur Random Creatinine 378.7, Ur Random Sodium < 5 L, Ur Random Potassium 12.7, Fraction Sodium Excret 01/05/186: Sodium Cancelled, Potassium Cancelled, Chloride Cancelled, Carbon Dioxide Cancelled, Anion Gap Cancelled, BUN Cancelled, Creatinine Cancelled, BUN/ Creatinine Ratio Cancelled, Glucose Cancelled, Calcium Cancelled 01/05/182136: Lactic Acid Cancelled 01/05/187: Anion Gap 23 H, Estimated GFR 16 L, BUN/Creatinine Ratio 13.1, Glucose 116 H, Lactic Acid 2.2 H, Calcium 9.7, Phosphorus 7.6 H, Magnesium 1.5 L, Total Bilirubin 0.7, AST 23, ALT 33, Alkaline Phosphatase 57, Troponin I < 0.01, Total Protein 7.5, Albumin 4.4, Globulin 3.1, Albumin/Globulin Ratio 1.4, Lipase 133 01/05/18 1907: Sodium Cancelled, Potassium Cancelled, Chloride Cancelled, Carbon Dioxide Cancelled, Anion Gap Cancelled, BUN Cancelled, Creatinine Cancelled, BUN/ Creatinine Ratio Cancelled, Glucose Cancelled, Calcium Cancelled, Total Bilirubin Cancelled, AST Cancelled, ALT Cancelled, Alkaline Phosphatase Cancelled, Total Protein Cancelled, Albumin Cancelled, Globulin Cancelled, Albumin/Globulin Ratio Cancelled, Lipase Cancelled, CBC w Diff MAN DIFF ORDERED, RBC 6.04 H, MCV 84.5, MCH 28.5, MCHC 33.7, RDW 13.4, MPV 8.3, Gran % 93.4 H, Lymphocytes % 3.5 L, Monocytes % 3.1, Eosinophils % 0, Basophils % 0, Absolute Granulocytes 18.3 H, Segmented Neutrophils 76 H, Band Neutrophils 13 H, Absolute Lymphocytes 0.7 L, Lymphocytes 6 L, Monocytes 5, Absolute Monocytes 0.6, Absolute Eosinophils 0, Absolute Basophils 0, Platelet Estimate INCREASED, Poikilocytosis 1+ 01/05/18 1736: Phosphorus Cancelled, Magnesium Cancelled Microbiology 01/06 529 BLOOD: Blood Culture - RECD 01/06 417 BLOOD: Blood Culture - COLB 01/06 147 STOOL: Cryptosporidium Antigen - COMP 01/06 147 STOOL: Giardia Antigen (ELAN) - COMP 01/06 147 STOOL: Clostridium difficile Toxin A & B - RES 01/06 147 STOOL: Stool Culture - RES Assessment/Plan Assessment: Ms Lance is a 42 year old woman w/ a PMHx of type 1 DM, pancreatic transplantation at [facility] in 2017, nephrolithiasis came to the ER w/ a chief concern of diarrhea that started one day after she returned from a trip to [facility] She is being treated and evaluated for following conditions #Acute viral gastroenteritis Patient was septic on presentation with a tachycardia, leukocytosis, bandemia source of infection, lactic acidosis. Her gastroenteritis appears most likely to be viral in origin. -Monitor vitals -Monitor fever and WBC curve -Stool Cdiff, cultures, ova and parasites pending -Can use Tylenol when necessary for fever -Continue to monitor off antibiotics -Anti-emetic PRN -Can add loperamide once Cdiff negative #TOM improving Likely secondary to dehydration because of diarrhea (prerenal) -Aggressive fluid hydration -Creatinine improved from 3.2 to 2.1 #Hyperphosphatemia improving Likely secondary to TOM -Continue to monitor #Hyperchloremia improving Likely secondary to normal saline infusion aggressive fluid hydration Improving continue to monitor #Mild pericardial effusion -Echocardiogram for further evaluation of mild pericardial effusion noted on CT abdomen pelvis #Metabolic acidosis Likely secondary to lactic acidosis and renal failure, along with GI losses of bicarbonate. So its likely that the metabolic acidosis was combination of anion gap and non-anion gap metabolic acidosis -Lactic acidosis has resolved and the gap has Closed -Patient presented with bicarbonate of 12 which dropped further down to 8 after fluid resuscitation and has improved to 14 -Continue IV D5W with 150 mEq of sodium bicarbonate per liter at 125 cc/hr #H/o pancreas transplant -We will resume patient's transplant medications and decrease the dose tarcolimus as per nephrology recommendations #Hyponatremia resolved Likely secondary to hypovolemic hyponatremia -Resolved #Hypomagnesemia resolved secondary to ongoing diarrhea -Repleted and resolved FC/DVT prophylaxis with subcutaneous heparin/diet as tolerated Problem List: 1. Gastroenteritis Pain Ratin Pain Location: n/a Pain Goal: Pain 4 or less Pain Plan: prn Tomorrow's Labs & Rationales: cbc bep mg margie [facility] MD,Radha 01/06/18 1124: Attending MD Review Statement Attending Statement Attending MD Statement: examined this patient, discuss w/resident/PA/APPLICATIONS PROGRAMMER ANALYST, agreed w/resident/PA/APPLICATIONS PROGRAMMER ANALYST, reviewed EMR data (avail), discussed with nursing, discussed with case mgmt, amended to note Attending Assessment/Plan: Patient seen and examined. Ambulated freely and not in any acute distress. Family present at the bedside. Denies nausea vomiting. Denies abdominal pain. She still having loose bowel movements. Reports several loose stools daily. Denies any blood in his stools. Denies any similar history in the past. She does report having a colonoscopy done several years ago but is unsure why this was done. She believes it may have been related to her bariatric surgery workup. She is unaware of any family history of inflammatory bowel disease. Denies any history of abdominal pain or cramping or diarrhea preceding her current symptoms. She is afebrile. She is hemodynamically stable. Labs reviewed WBCs he is trending well serum creatinine is improving. Likely secondary to volume repletion. She continues to have a metabolic acidosis. Hyperchloremia is likely due to fluid resuscitation. Problem: 1. Acute kidney injury; secondary to volume depletion. 2. Acute enteritis; possibly viral in etiology 3. Metabolic acidosis 4. History of pancreatic transplant Plan: -Continue fluid resuscitation, fluids have been changed to D5W with sodium bicarb in order to correct her metabolic acidosis. -Repeat her hypomagnesemia. -Follow-up stool workup for Clostridium difficile. Also follow-up Cryptosporidium and Giardia testing -Nephrology consultation -Please notify her transplant team at [facility] regarding her hospitalization. -No evidence of bacterial infection at present. Continue to hold antibiotic therapy. -Obtain echocardiogram for further evaluation of mild pericardial effusion noted on CT abdomen pelvis. -Follow-up stool workup for Clostridium difficile. Also follow-up Cryptosporidium and Giardia testing -Nephrology consultation -Please notify her transplant team at [facility] regarding her hospitalization. -No evidence of bacterial infection at present. Continue to hold antibiotic therapy. -Obtain echocardiogram for further evaluation of mild pericardial effusion noted on CT abdomen pelvis.
[2018-01-06 11:30] VITALS: BP 112/66
[2018-01-06 11:41] VITALS: BP 112/66
--- NOTE | 2018-01-06 13:44 | Cons- Nephrology ---
General Information and HPI Consulting Request Date of Consult: 01/06/18 Requested By: Radha [facility] MD Reason for Consult: TOM, metabolic acidosis Source of Information: patient Exam Limitations: no limitations History of Present Illness: I have been asked to see this 42-year-old woman because of acute kidney injury and severe metabolic acidosis. 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 She came back from a vacation in the [facility] [place] about 10 days ago at which time she developed fairly severe watery diarrhea without fever or chills but initially with some abdominal cramping. She was seen in the emergency department here at [facility] on 12/29 and sent home on antibiotics and symptomatic therapy. Her creatinine at that time was 1.0 with a CO2 of 18 and anion gap of 14. Baseline creatinine from 2013 through 2015 range from 0.4-0.6. She now comes in with persistent diarrhea associated with weakness, lightheadedness and worsening lethargy. There has been no vomiting. In the ED she was found to have a serum creatinine of 3.2, bicarbonate of 12 last night falling to 8 this morning with an anion gap of 17. Neither arterial nor venous blood gases were obtained. Urine specific gravity was markedly elevated at >1.030 and urine sodium was less than 5. There was no glycosuria and serum glucose at presentation was 116. CT scan of abdomen and pelvis without contrast showed nonobstructing renal calculi but otherwise normal kidneys. Parenthetically, the patient also has a history of diabetic retinopathy but in reviewing old urinalysis data there does not appear to have been any significant proteinuria in the past. 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 Medications: See below. List includes bupropion, citalopram, vitamin B12, ibuprofen as needed, mycophenolate, tacrolimus. Allergies: Amoxicillin Family history: Negative for kidney disease in parents or siblings, positive for type 2 diabetes in a maternal aunt. She has no children. Social history: Lives in an apartment with her brother. Never . No children. Denies any history of cigarette smoking, alcohol abuse or drug abuse. Allergies/Medications Allergies: Coded Allergies: amoxicillin (Intermediate, RASH 11/03/17) Home Med List: Bupropion HCl (Wellbutrin Sr) 150 MG TABLET.ER 1 TAB PO QPM mental (Reported) Citalopram Hydrobromide (Celexa) 20 MG TABLET 1 TAB PO DAILY mental (Reported ) Cyanocobalamin (Vitamin B-12) (Vitamin B12) 2,500 MCG TAB.CHEW 1 TAB PO DAILY supplement (Reported) Ibuprofen 800 MG TABLET 1 TAB PO TID PRN pain/fever Mycophenolate Mofetil (Cellcept) 250 MG CAPSULE 1 CAP PO BID Pancreatic transplant (Reported) Tacrolimus (Prograf) 1 MG CAPSULE 6 CAP PO BID s/p transplant (Reported) Review of Systems Review of Systems: Gen.: Appetite poor since returning from vacation, positive weakness and fatigue Skin: No rash or jaundice HEENT: No visual or hearing disturbances, no discharge Cardiopulmonary: No shortness of breath, cough, chest pain, orthopnea GI: No nausea, vomiting, abdominal pain, +diarrhea (see HPI) : No dysuria, hematuria or other symptoms referable to the urinary tract Musculoskeletal: No arthralgias, arthritis, myalgias Neuro: No altered mental status, speech impairment, focal weakness, paresthesias Past History Travel History Traveled to [place] past 21 day No Medical History Neurological: NONE EENT: NONE Cardiovascular: NONE Respiratory: NONE Gastrointestinal: PANCREAS TRANSPLANT Hepatic: NONE Renal: KIDNEY STONES Musculoskeletal: NONE Psychiatric: NONE Endocrine: iddm Blood Disorders: NONE Cancer(s): NONE BRASS POLISHER/Reproductive: NONE Surgical History Surgical History: non-contributory, INSULIN PUMP Psychosocial History Services at Home: None Exam & Diagnostic Data Vital Signs and I&O Vital Signs Date Time Temp Pulse Resp B/P B/P Pulse O2 O2 Flow FiO2 Mean Ox Delivery Rate 01/06 1141 97.7 87 20 112/66 99 Room Air 01/06 1130 97.7 87 20 112/66 01/06 0726 97.6 97 18 126/68 99 Room Air 01/06 0110 98.5 99 18 130/69 99 Room Air 01/05 2126 97.9 85 14 107/55 99 Room Air 01/05 1933 Room Air 01/05 193 98.9 112 16 98/59 98 Room Air 01/05 1733 99.4 120 18 94/60 99 Room Air Intake & Output 01/06 1600 01/06 0400 01/05 0400 01/04 040 Intake Total 1999 1000 Output Total Balance 1999 1000 Intake, IV 1999 1000 Patient 161 lb Weight Weight Reported by Patient Measurement Method Physical Exam: General: Well-developed white female in NAD Skin: No rash or jaundice, skin turgor poor HEENT: Conjunctivae pink, sclerae anicteric, mucous membranes dry Neck: Without masses or thyromegaly, no supraclavicular or cervical adenopathy Chest: Clear to P&A Heart: Regular rate and rhythm without S3 or rub Abdomen: Soft and nontender without palpable masses or organomegaly; well-healed midline surgical scar Extremities: Without cyanosis or edema Neuro: Cognitively intact, no focal findings, no asterixis or myoclonus Assessment/Plan Assessment/Recommendations Assessment: 42-year-old woman with a 7-10 day history of watery diarrhea and a past history of bariatric surgery and a pancreas transplant for juvenile diabetes mellitus, now comes in with acute kidney injury and metabolic acidosis in setting of severe dehydration. The acidosis is a mixture of anion gap and non-anion gap metabolic acidosis secondary to renal failure and GI bicarbonate losses, respectively. The TOM appears to be primarily prerenal but contributing factors may include some use of NSAIDs and the fact that she is on a calcineurin inhibitor. Recommendations: 1. Please obtain a tacrolimus level approximately 12 hours after her last dose 2. IV D5W with 150 mEq of sodium bicarbonate per liter at 125 cc/hr 3. Check CK level and recheck chemistries later today 4. Resume her immunosuppressive regimen but would, at least temporarily, lower her tacrolimus dose to 3 mg twice daily, pending return of her renal function to near baseline
[2018-01-06 13:45] VITALS: BP 110/60
[2018-01-06 22:01] VITALS: BP 110/60
[2018-01-07 06:55] VITALS: BP 114/68
[2018-01-07] MEDS ORDERED: TACROLIMUS1 M1 PO (07:21)
[2018-01-07] MEDS ORDERED: LOPERAMIDE2 M2 PO (07:21)
--- NOTE | 2018-01-07 07:23 | Patient Discharge Instructions ---
Discharge Instructions General Discharge Information You were seen/treated for: Acute viral gastroenteritis Acute kidney injury Special Instructions: -Please follow-up with your primary care doctor after discharge -Please follow-up with your transplant team after discharge -Please follow-up with privacy specialist after discharge -you will require monitoring of her kidney number of prescription has been provided for blood work to be done on 01/11/2018 AND on 01/18/2018 Diet Recommended Diet: Diabetic Activity Activity Self Limited: Yes Acute Coronary Syndrome Inclusion Criteria At DC or during hospital stay patient has or had the following: ACS DIAGNOSIS No Discharge Core Measures Meds if any: Prescribed or Continued at Discharge Meds if any: NOT Prescribed or Continued at Discharge Congestive Heart Failure Inclusion Criteria At DC or during hospital stay patient has or had the following: CHF DIAGNOSIS No Discharge Core Measures Meds if any: Prescribed or Continued at Discharge Meds if any: NOT Prescribed or Continued at Discharge Cerebrovascular accident Inclusion Criteria At DC or during hospital stay patient has or had the following: CVA/TIA Diagnosis No Discharge Core Measures Meds if any: Prescribed or Continued at Discharge Meds if any: NOT Prescribed or Continued at Discharge Venous thromboembolism Inclusion Criteria VTE Diagnosis No VTE Type NONE VTE Confirmed by (Test) NONE Discharge Core Measures - Per Current guidelines, there needs to be overlap - treatment for the first 5 days of Warfarin therapy. - If discharged on Warfarin prior to 5 days of - overlap therapy, the patient will need to be - assessed for post discharge needs including - *Post discharge parental anticoagulation - *Warfarin and/or parental anticoagulation education - *Follow up date to check INR post discharge At least 5 days overlap therapy as Inpatient No Meds if any: Prescribed or Continued at Discharge Note: Overlap Therapy is Warfarin and Anticoagulant Meds if any: NOT Prescribed or Continued at Discharge Note: Overlap Therapy is Warfarin and Anticoagulant Meds if any: NOT Prescribed or Continued at Discharge
[2018-01-07 08:25] LABS: ABSOLUTE BASOPHIL COUNT 0 /CUMM (0.0-0.2); ABSOLUTE EOSINOPHIL COUNT 0.1 /CUMM (0.0-0.7); ABSOLUTE GRANULOCYTE CT 4.5 /CUMM (1.4-6.5); ABSOLUTE LYMPH COUNT 0.8 /CUMM (1.2-3.4); ABSOLUTE MONOCYTE COUNT 0.3 /CUMM (0.10-0.60); BASOPHIL % 0.1 % (0.0-2.0); EOSINOPHIL % 2.1 % (0-5); GRANULOCYTE % 78.4 % (42.2-75.2); HEMATOCRIT 33.7 % (37-47); MEAN CORPUSCULAR HGB 28.7 PG (27.0-31.0); MEAN CORPUSCULAR HGB CONC 34.5 G/DL (33.0-37.0); MEAN CORPUSCULAR VOLUME 83.3 FL (81.0-99.0); MEAN PLATELET VOLUME 8.4 FL (7.4-10.4); PLATELET COUNT 340 /CUMM (130-400); RBC DISTRIBUTION WIDTH 13.4 % (11.5-14.5); RED BLOOD CELL CT 4.04 /CUMM (4.20-5.40)
[2018-01-07 09:05] LABS: WHITE BLOOD CELL COUNT 5.7 /CUMM (4.8-10.8)
--- NOTE | 2018-01-07 09:16 | PN- Housestaff ---
Rashad TODD,[facility] 01/07/18 0916: Subjective Follow-up For: Acute viral gastroenteritis Subjective: Patient seen and examined. Continues to have multiple bowel movements. Otherwise feeling better. We'll start the patient's transplant team today and recommended that are tacrolimus dose to be 5 mg twice a day Review of Systems Constitutional: Reports: see HPI. Objective Last 24 Hrs of Vital Signs/I&O Vital Signs Date Time Temp Pulse Resp B/P B/P Pulse O2 O2 Flow FiO2 Mean Ox Delivery Rate 01/07 0800 Room Air 01/07 0655 98.5 91 18 114/68 95 Room Air 01/06 2201 98.2 98 18 110/60 96 Room Air Intake & Output 01/07 1600 01/07 0800 01/07 0000 Intake Total 995 495 Output Total Balance 995 495 Intake, IV 875 375 Intake, Oral 120 120 Number 1 Bowel Movements Patient 161 lb Weight Physical Exam General Appearance: Alert, Oriented X3 Cardiovascular: Normal S1, Normal S2, No Murmurs Lungs: Clear to Auscultation, Normal Air Movement Abdomen: Normal Bowel Sounds, Soft, mild tenderness Neurological: Normal Speech Assessment/Plan Assessment: Ms Lance is a 42 year old woman w/ a PMHx of type 1 DM, pancreatic transplantation at [facility] in 2017, nephrolithiasis came to the ER w/ a chief concern of diarrhea that started one day after she returned from a trip to [facility] She is being treated and evaluated for following conditions #Acute viral gastroenteritis Patient was septic on presentation with a tachycardia, leukocytosis, bandemia source of infection, lactic acidosis. Her gastroenteritis appears most likely to be viral in origin. -Monitor vitals -Monitor fever and WBC curve -Stool cultures, ova and parasites pending -Cdiff negative -Can use Tylenol when necessary for fever -Continue to monitor off antibiotics -Anti-emetic PRN -Loperamide 2 mg every 6 #TOM improving Likely secondary to dehydration because of diarrhea (prerenal) -Aggressive fluid hydration -Creatinine improved from 3.2 to 2.1 to 1.9 #Hypokalemia Probably due to ongoing diarrhea -Aggressive progression the patient Kdur 40 mg 3 #Mild pericardial effusion -Echocardiogram for further evaluation of mild pericardial effusion noted on CT abdomen pelvis, pending #Metabolic acidosis Likely secondary to lactic acidosis and renal failure, along with GI losses of bicarbonate. So its likely that the metabolic acidosis was combination of anion gap and non-anion gap metabolic acidosis -Lactic acidosis has resolved and the gap has Closed -Patient presented with bicarbonate of 12 which dropped further down to 8 after fluid resuscitation and has improved to 21 -half-normal saline +75 mEq of sodium bicarbonate per liter at 125 cc/h #H/o pancreas transplant I talked to patient's transplant team who recommended continuing tacrolimus at 5 mg twice a day and Celexa at the home dose. Patient will require weekly labs for monitoring of BEP and she will follow-up with her team on January 21 -tacrolimus level pending #Hyponatremia resolved Likely secondary to hypovolemic hyponatremia -Resolved #Hyperchloremia resolved Likely secondary to normal saline infusion aggressive fluid hydration -Resolved #Hyperphosphatemia resolved Likely secondary to TOM -Resolved #Hypomagnesemia resolved secondary to ongoing diarrhea -Repleted and resolved FC/DVT prophylaxis with subcutaneous heparin/diet as tolerated Problem List: 1. TOM (acute kidney injury) 2. Diarrhea Pain Ratin Pain Location: n/a Pain Goal: Pain 4 or less Pain Plan: prn Tomorrow's Labs & Rationales: bep Radha Hamilton MD 01/07/18 1336: Attending MD Review Statement Attending Statement Attending MD Statement: examined this patient, discuss w/resident/PA/CERTIFIED CAREGIVER, agreed w/resident/PA/CERTIFIED CAREGIVER, reviewed EMR data (avail), discussed with nursing, discussed with case mgmt, amended to note Attending Assessment/Plan: Patient seen and examined. Resting comfortably and not in acute distress. She however continues to have frequent loose bowel movements. Frequency and quantity have not improved since admission. C. difficile testing returned negative and she was started Imodium with no improvement of her bowel movements. Fortunately her renal function is improving. Her metabolic acidosis is resolving. We did contact the transplant team today. Recommendations are to go back to her regular dose of Prograf. We also recommended that patient follow up with them next week on examination she is not in any distress. Abdomen is nondistended soft and nontender with normal bowel sounds. We will adjust her IV fluids as recommended by the nephrology service. In view of her ongoing diarrhea recommend consultation with the gastroenterology service
--- NOTE | 2018-01-07 12:49 | PN- Nephrology ---
Assessment/Plan Nephrology Assessment: 1. TOM secondary to severe dehydration (diarrhea) -improving with IV fluids 2. Metabolic acidosis -much improved 3. Hypokalemia 4. Persistent diarrhea 5. History of pancreas transplant for type 1 diabetes mellitus -on tacrolimus and MMF Suggestion: 1. Change IV to half-normal saline +75 mEq of sodium bicarbonate per liter at 125 cc/h 2. Aggressive oral potassium supplementation 3. With improved renal function, agree with increase in tacrolimus dose 4. GI consult Subjective Subjective: Patient feels somewhat better overall today but her diarrhea is unchanged. Renal function and acidosis improving with IV fluids and bicarb. Serum potassium down to 3.0 as result of persistent diarrhea, improved renal function and resolution (at least partially) of her acidosis. Stool culture results all pending. CK within normal limits. Tacrolimus dosing decreased to 3 mg twice daily and then increased again to 5 mg twice daily following discussions with her transplant team. Trough level pending. Objective Vital Signs and I&Os Vital Signs Date Time Temp Pulse Resp B/P B/P Pulse O2 O2 Flow FiO2 Mean Ox Delivery Rate 01/07 0800 Room Air 01/07 0655 98.5 91 18 114/68 95 Room Air 01/06 2201 98.2 98 18 110/60 96 Room Air 01/06 1345 98.0 87 16 110/60 99 Intake & Output 01/07 1600 01/07 0400 01/06 1600 01/06 0400 01/05 1600 01/05 0400 Intake Total 074 060 4582 1000 Output Total Balance 971 350 5369 1000 Intake, IV 014 111 8073 1000 Intake, Oral 120 120 Number 1 Bowel Movements Patient 161 lb 161 lb 161 lb Weight Weight Reported by Patient Reported by Patient Measurement Method Physical Exam: General: Well-developed white female in NAD Skin: No rash or jaundice, skin turgor poor but improved, multiple tattoos HEENT: Conjunctivae pink, sclerae anicteric, mucous membranes dry Neck: Without masses or thyromegaly, no supraclavicular or cervical adenopathy Chest: Clear to P&A Heart: Regular rate and rhythm without S3 or rub Abdomen: Soft, nontender without palpable masses or organomegaly; bowel sounds hyperactive; well-healed midline surgical scar Extremities: Without cyanosis or edema Neuro: Cognitively intact, no focal findings, no asterixis or myoclonus Current Medications: Current Medications Sig/Jaqui Start time Last Medication Dose Route Stop Time Status Admin Acetaminophen 650 MG Q6P PRN 01/06 0045 AC PO Acetaminophen 1,000 MG Q6P PRN 01/06 0045 AC IV Bupropion HCl 150 MG QPM 01/06 2100 AC 01/06 PO 205 Citalopram 20 MG DAILY 01/06 0900 AC 01/07 Hydrobromide PO 0930 Heparin Sodium 5,000 UNIT Q8 01/06 06 AC (Porcine) SC Loperamide HCl 2 MG Q6P PRN 01/07 1100 AC PO Loperamide HCl 2 MG Q8P PRN 01/06 1715 DC 01/07 PO 0943 Mycophenolate Mofetil 250 MG BID 01/06 09 AC 01/07 PO 0930 Potassium Chloride 40 MEQ ONCE ONE 01/07 0945 DC 01/07 PO 01/07 0946 1025 Sodium Bicarbonate 150 MEQ Q8H 01/06 2030 AC 01/07 Dextrose/Water 1,000 ML IV 0437 Sodium Bicarbonate 150 MEQ CONTINOUS INFUSION 01/06 1045 DC 01/06 Dextrose/Water 1,000 ML IV 01/06 2030 1230 Tacrolimus 6 MG BID 01/07 2100 DC PO Tacrolimus 5 MG BID 01/07 2100 AC PO Tacrolimus 3 MG ONCE ONE 01/07 1100 DC 01/07 PO 01/07 1101 1157 Tacrolimus 3 MG BID 01/06 2100 DC 01/07 PO 0930 Tacrolimus 6 MG BID 01/06 0900 DC 01/06 PO 0922 Results Pertinent Lab Results: Laboratory Tests 01/07 01/07 01/06 0715 0610 2355 Chemistry Sodium (137 - 145 mmol/L) 139 Potassium (3.5 - 5.1 mmol/L) 3.0 L Chloride (98 - 107 mmol/L) 106 Carbon Dioxide (22 - 30 mmol/L) 21 L Anion Gap (5 - 16) 12 BUN (7 - 17 mg/dL) 44 H Creatinine (0.5 - 1.0 mg/dL) 1.9 H Estimated GFR (>60 ml/min) 29 L BUN/Creatinine Ratio (7 - 25 %) 23.2 Phosphorus (2.5 - 4.5 mg/dL) 4.1 Magnesium (1.6 - 2.3 mg/dL) 2.0 Hematology CBC w Diff NO MAN DIFF REQ WBC (4.8 - 10.8 /CUMM) 5.7 RBC (4.20 - 5.40 /CUMM) 4.04 L Hgb (12.0 - 16.0 G/DL) 11.6 L Hct (37 - 47 %) 33.7 L MCV (81.0 - 99.0 FL) 83.3 MCH (27.0 - 31.0 PG) 28.7 MCHC (33.0 - 37.0 G/DL) 34.5 RDW (11.5 - 14.5 %) 13.4 Plt Count (130 - 400 /CUMM) 340 MPV (7.4 - 10.4 FL) 8.4 Gran % (42.2 - 75.2 %) 78.4 H Lymphocytes % (20.5 - 51.1 %) 13.8 L Monocytes % (1.7 - 9.3 %) 5.6 Eosinophils % (0 - 5 %) 2.1 Basophils % (0.0 - 2.0 %) 0.1 Absolute Granulocytes (1.4 - 6.5 /CUMM) 4.5 Absolute Lymphocytes (1.2 - 3.4 /CUMM) 0.8 L Absolute Monocytes (0.10 - 0.60 /CUMM) 0.3 Absolute Eosinophils (0.0 - 0.7 /CUMM) 0.1 Absolute Basophils (0.0 - 0.2 /CUMM) 0 Toxicology Tacrolimus Pending 01/06 01/06 01/06 01/06 1235 1000 0824 0529 Chemistry Sodium (137 - 145 mmol/L) 138 Cancelled Potassium (3.5 - 5.1 mmol/L) 3.9 Cancelled Chloride (98 - 107 mmol/L) 108 H Cancelled Carbon Dioxide (22 - 30 mmol/L) 14 L Cancelled Anion Gap (5 - 16) 16 Cancelled BUN (7 - 17 mg/dL) 40 H Cancelled Creatinine (0.5 - 1.0 mg/dL) 2.1 H Cancelled Estimated GFR (>60 ml/min) 26 L BUN/Creatinine Ratio (7 - 25 %) 19.0 Cancelled Lactic Acid (0.7 - 2.1 mmol/L) Cancelled 0.6 L Phosphorus (2.5 - 4.5 mg/dL) 5.2 H Magnesium (1.6 - 2.3 mg/dL) 2.0 Creatine Kinase (30 - 135 U/L) 44 01/06 01/05 0529 2330 Chemistry Sodium (137 - 145 mmol/L) 136 L Potassium (3.5 - 5.1 mmol/L) 3.8 Chloride (98 - 107 mmol/L) 111 H Carbon Dioxide (22 - 30 mmol/L) 8 *L Anion Gap (5 - 16) 17 H BUN (7 - 17 mg/dL) 41 H Creatinine (0.5 - 1.0 mg/dL) 2.1 H Estimated GFR (>60 ml/min) 26 L BUN/Creatinine Ratio (7 - 25 %) 19.5 Serum Osmolality (285 - 295 MOSM/KG) 287 Phosphorus (2.5 - 4.5 mg/dL) 5.4 H Magnesium (1.6 - 2.3 mg/dL) 1.4 L Hematology CBC w Diff MAN DIFF ORDERED WBC (4.8 - 10.8 /CUMM) 15.6 H RBC (4.20 - 5.40 /CUMM) 4.48 Hgb (12.0 - 16.0 G/DL) 13.1 Hct (37 - 47 %) 38.2 MCV (81.0 - 99.0 FL) 85.2 MCH (27.0 - 31.0 PG) 29.1 MCHC (33.0 - 37.0 G/DL) 34.2 RDW (11.5 - 14.5 %) 13.6 Plt Count (130 - 400 /CUMM) 336 MPV (7.4 - 10.4 FL) 8.6 Gran % (42.2 - 75.2 %) 93.2 H Lymphocytes % (20.5 - 51.1 %) 3.8 L Monocytes % (1.7 - 9.3 %) 2.9 Eosinophils % (0 - 5 %) 0.1 Basophils % (0.0 - 2.0 %) 0 Absolute Granulocytes (1.4 - 6.5 /CUMM) 14.5 H Segmented Neutrophils (42.2 - 75.2 %) 87 H Band Neutrophils (0.0 - 5.0 %) 4 Absolute Lymphocytes (1.2 - 3.4 /CUMM) 0.6 L Lymphocytes (20.5 - 51.1 %) 4 L Monocytes (1.7 - 9.3 %) 5 Absolute Monocytes (0.10 - 0.60 /CUMM) 0.4 Absolute Eosinophils (0.0 - 0.7 /CUMM) 0 Absolute Basophils (0.0 - 0.2 /CUMM) 0 Platelet Estimate (ADEQUATE) ADEQUATE Polychromasia 1+ Poikilocytosis 1+ Ovalocytes 1+ Konrad Cells FEW Elliptocytes FEW Other Body Source Fld Total RBCs Counted (%) 100 Urines Urine Test NEGATIVE 01/05 01/05 01/05 2330 2330 2226 Chemistry Sodium Cancelled Potassium Cancelled Chloride Cancelled Carbon Dioxide Cancelled Anion Gap Cancelled BUN Cancelled Creatinine Cancelled BUN/Creatinine Ratio Cancelled Glucose Cancelled Calcium Cancelled Toxicology Urine Opiates Screen (>2000 NG/ML) < 100 Methadone Screen (>300 NG/ML) < 40 Barbiturate Screen (>200 NG/ML) < 60 Ur Phencyclidine Scrn (>25 NG/ML) < 6.00 Amphetamines Screen (>1000 NG/ML) 208 U Benzodiazepines Scrn (>200 NG/ML) < 85 Urine Cocaine Screen (>300 NG/ML) < 50 Urine Cannabis Screen (>50 NG/ML) < 5.00 Urines Urinalysis MOD H Urine Color (YEL,AMB,STR) ZACHARIAH Urine Clarity (CLEAR) HAZY H Urine pH (5.0 - 8.0) 6.0 Ur Specific Atkinson (1.001 - 1.035) >= 1.030 Urine Protein (NEG,<30 MG/DL) 30 H Urine Ketones (NEG) TRACE H Urine Nitrite (NEG) NEG Urine Bilirubin (NEG) NEG@ICTO Urine Urobilinogen (0.1 - 1.0 EU/dl) 0.2 Ur Leukocyte Esterase (NEG) TRACE H Ur Microscopic SEDIMENT EXAMINED Urine RBC (0 - 5 /HPF) 1-3 Urine WBC (0 - 2 /HPF) 10-15 H Ur Epithelial Cells (NONE,FEW) MOD H Urine Crystals 3+ CA OX H Urine Bacteria (NEG/NONE) MOD H Hyaline Casts (0/LPF) MANY H Urine Mucus (FEW,NONE) MOD H Urine Hemoglobin (NEG) NEG Urine Osmolality (300 - 1000 MOSM/KG) 389 Ur Random Creatinine (mg/dL) 378.7 Ur Random Sodium (30 - 90 mmol/L) < 5 L Ur Random Potassium (mmol/L) 12.7 Fraction Sodium Excret (<1% %) Urine Glucose (N MG/DL) NEG 01/057 1907 1907 Chemistry Sodium (137 - 145 mmol/L) 132 L Cancelled Potassium (3.5 - 5.1 mmol/L) 3.9 Cancelled Chloride (98 - 107 mmol/L) 97 L Cancelled Carbon Dioxide (22 - 30 mmol/L) 12 L Cancelled Anion Gap (5 - 16) 23 H Cancelled BUN (7 - 17 mg/dL) 42 H Cancelled Creatinine (0.5 - 1.0 mg/dL) 3.2 H Cancelled Estimated GFR (>60 ml/min) 16 L BUN/Creatinine Ratio (7 - 25 %) 13.1 Cancelled Glucose (65 - 99 mg/dL) 116 H Cancelled Lactic Acid (0.7 - 2.1 mmol/L) Cancelled 2.2 H Calcium (8.4 - 10.2 mg/dL) 9.7 Cancelled Phosphorus (2.5 - 4.5 mg/dL) 7.6 H Magnesium (1.6 - 2.3 mg/dL) 1.5 L Total Bilirubin (0.2 - 1.3 mg/dL) 0.7 Cancelled AST (14 - 36 U/L) 23 Cancelled ALT (9 - 52 U/L) 33 Cancelled Alkaline Phosphatase (<127 U/L) 57 Cancelled Troponin I (< 0.11 ng/ml) < 0.01 Total Protein (6.3 - 8.2 g/dL) 7.5 Cancelled Albumin (3.5 - 5.0 g/dL) 4.4 Cancelled Globulin (1.9 - 4.2 gm/dL) 3.1 Cancelled Albumin/Globulin Ratio (1.1 - 2.2 %) 1.4 Cancelled Lipase (23 - 300 U/L) 133 Cancelled Hematology CBC w Diff MAN DIFF ORDERED WBC (4.8 - 10.8 /CUMM) 19.6 H RBC (4.20 - 5.40 /CUMM) 6.04 H Hgb (12.0 - 16.0 G/DL) 17.2 H Hct (37 - 47 %) 51.0 H MCV (81.0 - 99.0 FL) 84.5 MCH (27.0 - 31.0 PG) 28.5 MCHC (33.0 - 37.0 G/DL) 33.7 RDW (11.5 - 14.5 %) 13.4 Plt Count (130 - 400 /CUMM) 476 H MPV (7.4 - 10.4 FL) 8.3 Gran % (42.2 - 75.2 %) 93.4 H Lymphocytes % (20.5 - 51.1 %) 3.5 L Monocytes % (1.7 - 9.3 %) 3.1 Eosinophils % (0 - 5 %) 0 Basophils % (0.0 - 2.0 %) 0 Absolute Granulocytes (1.4 - 6.5 /CUMM) 18.3 H Segmented Neutrophils (42.2 - 75.2 %) 76 H Band Neutrophils (0.0 - 5.0 %) 13 H Absolute Lymphocytes (1.2 - 3.4 /CUMM) 0.7 L Lymphocytes (20.5 - 51.1 %) 6 L Monocytes (1.7 - 9.3 %) 5 Absolute Monocytes (0.10 - 0.60 /CUMM) 0.6 Absolute Eosinophils (0.0 - 0.7 /CUMM) 0 Absolute Basophils (0.0 - 0.2 /CUMM) 0 Platelet Estimate (ADEQUATE) INCREASED Poikilocytosis + 01/05 1736 Chemistry Phosphorus Cancelled Magnesium Cancelled
[2018-01-07 14:32] VITALS: BP 124/70
--- NOTE | 2018-01-07 15:53 | Cons- Gastroenterology ---
General Information and HPI Consulting Request Date of Consult: 01/07/18 Requested By: Radha Hamilton MD Reason for Consult: 1. Acute Change in Bowel Habits 2. Diarrhea 3. S/P Pancreas Transplant 4. Chronic Use Immunosuppressive Agents Source of Information: patient, Electronic Medical Record Exam Limitations: no limitations History of Present Illness: Ms. Lance is a 42-year-old female with a history of pancreas transplant done at [facility] approximately 2 years ago for type 1 diabetes mellitus. She did well and has not had any episodes of acute rejection. She takes CellCept and Prograf and has trough levels monitored weekly. She had gone to the [facility] for vacation and returned last Thursday proximally 10 days ago. She did not have diarrhea while she was in the [facility] however developed it on the day that she returned. No one else in her travel alliance party was sick. . She is having large voluminous watery stools. She has had no blood admixed with her stool. She has abdominal discomfort but no marky abdominal pain. She' s had no nausea vomiting fever or shaking chills. She generally has normal bowel function without constipation or diarrhea. She reports that her stools are green in color. She had a CT scan of the abdomen and pelvis done on admission the results are as follows. FINDINGS: LUNG BASES: The lung bases are clear. There is a small pericardial effusion seen anteriorly. This is slightly increased compared to prior. LIVER, GALLBLADDER, AND BILIARY TREE: The liver is normal in size, shape, and attenuation. No focal hepatic lesion or biliary ductal dilatation is present. The gallbladder is unremarkable with no evidence of radiopaque gallstones, gallbladder wall thickening, or obvious pericholecystic inflammatory changes. PANCREAS: Unremarkable. SPLEEN: Unremarkable. ADRENAL GLANDS: Unremarkable. KIDNEYS AND URETERS: The kidneys are normal in size, shape, and attenuation. There is no hydronephrosis or hydroureter. Redemonstration of right upper pole renal calculi. The largest measures 0.7 cm, 6.5 cm from the posterior axillary line, measuring approximately 800 Hounsfield units. BLADDER: Decompressed with no gross abnormality. GASTROINTESTINAL TRACT: Postsurgical changes status post Rosanna-en-Y gastric bypass. There is no evidence of obstruction. The small bowel is normal in caliber. The colon is somewhat gas and fluid-filled throughout. Mild wall thickening of small bowel within the pelvis. Additional small bowel anastomosis noted in the right lower quadrant. ABDOMINAL WALL: No significant hernia is appreciated. LYMPH NODES: Normal. VASCULAR: Unremarkable. PELVIC VISCERA: Unremarkable. OSSEOUS STRUCTURES: No acute or suspicious osseous abnormality. IMPRESSION: Mild wall thickening of small bowel within the pelvis may represent enteritis. No bowel obstruction. Small pericardial effusion anteriorly. This is slightly increased from the prior study. On admission patient had white blood cell count 19.6 with an H&H 17.2/51.0 and platelets of 476,000. They have since decreased to white blood cell count of 5.7 with an H&H of 11.6/33.7 and platelets of 340,000. Stools were negative for cryptosporidium and Giardia antigens, C. difficile, stool C&S. Blood cultures were negative. Allergies/Medications Allergies: Coded Allergies: amoxicillin (Intermediate, RASH 11/03/17) Home Med List: Bupropion HCl (Wellbutrin Sr) 150 MG TABLET.ER 1 TAB PO QPM mental (Reported) Citalopram Hydrobromide (Celexa) 20 MG TABLET 1 TAB PO DAILY mental (Reported ) Cyanocobalamin (Vitamin B-12) (Vitamin B12) 2,500 MCG TAB.CHEW 1 TAB PO DAILY supplement (Reported) Ibuprofen 800 MG TABLET 1 TAB PO TID PRN pain/fever Loperamide HCl (Loperamide) 2 MG CAPSULE 1 TAB PO Q8P PRN DIARRHEA Mycophenolate Mofetil (Cellcept) 250 MG CAPSULE 1 CAP PO BID Pancreatic transplant (Reported) Tacrolimus (Prograf) 1 MG CAPSULE 6 CAP PO BID s/p transplant (Reported) Tacrolimus 1 MG CAPSULE 3 CAP PO BID PANCREATIC TRANSPLANT Current Medications: Current Medications Sig/Jaqui Start time Last Medication Dose Route Stop Time Status Admin Acetaminophen 650 MG Q6P PRN 01/06 0045 AC PO Acetaminophen 1,000 MG Q6P PRN 01/06 0045 AC IV Bupropion HCl 150 MG QPM 01/06 2100 AC 01/06 PO 2050 Citalopram 20 MG DAILY 01/06 0900 AC 01/07 Hydrobromide PO 0930 Heparin Sodium 5,000 UNIT Q8 01/06 0600 AC 01/07 (Porcine) SC 1435 Loperamide HCl 2 MG Q6P PRN 01/07 1100 AC PO Loperamide HCl 2 MG Q8P PRN 01/06 1715 DC 01/07 PO 0943 Mycophenolate Mofetil 250 MG BID 01/06 0900 AC 01/07 PO 0930 Potassium Chloride 40 MEQ BID 01/07 1333 AC 01/07 PO 01/07 2101 1443 Potassium Chloride 40 MEQ ONCE ONE 01/07 0945 DC 01/07 PO 01/07 0946 1025 Sodium Bicarbonate 75 MEQ Q8H 01/07 1400 AC 01/07 Sodium Chloride 1,000 ML IV 01/07 2159 1435 Sodium Bicarbonate 150 MEQ Q8H 01/06 2030 DC 01/07 Dextrose/Water 1,000 ML IV 0437 Sodium Bicarbonate 150 MEQ CONTINOUS INFUSION 01/06 1045 DC 01/06 Dextrose/Water 1,000 ML IV 01/06 2030 1230 Tacrolimus 6 MG BID 01/07 2100 DC PO Tacrolimus 5 MG BID 01/07 2100 AC PO Tacrolimus 3 MG ONCE ONE 01/07 1100 DC 01/07 PO 01/07 1101 1157 Tacrolimus 3 MG BID 01/06 2100 DC 01/07 PO 0930 Past History Travel History Traveled to [place] past 21 day No Medical History Neurological: NONE EENT: NONE Cardiovascular: NONE Respiratory: NONE Gastrointestinal: PANCREAS TRANSPLANT Hepatic: NONE Renal: KIDNEY STONES Musculoskeletal: NONE Psychiatric: NONE Endocrine: iddm Blood Disorders: NONE Cancer(s): NONE 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 Denies: chills, diaphoresis, fever. EENTM: Reports: no symptoms. Cardiovascular: Reports: no symptoms. Respiratory: Reports: no symptoms. GI: Reports: see HPI. Genitourinary: Reports: no symptoms. Musculoskeletal: Reports: no symptoms. Skin: Reports: no symptoms. Neurological/Psychological: Reports: no symptoms. Hematologic/Endocrine: Reports: no symptoms. Exam & Diagnostic Data Vital Signs and I&O Vital Signs Date Time Temp Pulse Resp B/P B/P Pulse O2 O2 Flow FiO2 Mean Ox Delivery Rate 01/07 1432 98.0 92 18 124/70 98 Room Air 01/07 0800 Room Air 01/07 0655 98.5 91 18 114/68 95 Room Air 01/06 2201 98.2 98 18 110/60 96 Room Air Intake & Output 01/07 04001/05 0400 Intake Total 2475 495 2500 1000 Output Total Balance 2475 495 2500 1000 Intake, IV 3698 088 4688 1000 Intake, Oral 600 120 Number 1 Bowel Movements Patient 161 lb 161 lb 161 lb Weight Weight Reported by Patient Reported by Patient Measurement Method Physical Exam General Appearance: well developed/nourished, no apparent distress, alert, awake Head: atraumatic, normal appearance Eyes: Bilateral: normal appearance. Ears, Nose, Throat: hearing grossly normal Neck: supple, full range of motion Respiratory: normal breath sounds, lungs clear Cardiovascular: regular rate/rhythm, normal S1 and S2 without rub, murmur, or gallop. Gastrointestinal: normal bowel sounds, soft, non-tender, no organomegaly, midline surgical scar, old Back: normal inspection Extremities: normal inspection Neurologic/Psych: awake, alert, oriented x 3, normal mood/affect Cranial Nerves: cranial nerves II through XII are grossly intact Results Pertinent Lab Results: Laboratory Tests 01/07 01/07 01/06 0715 0610 2355 Chemistry Sodium (137 - 145 mmol/L) 139 Potassium (3.5 - 5.1 mmol/L) 3.0 L Chloride (98 - 107 mmol/L) 106 Carbon Dioxide (22 - 30 mmol/L) 21 L Anion Gap (5 - 16) 12 BUN (7 - 17 mg/dL) 44 H Creatinine (0.5 - 1.0 mg/dL) 1.9 H Estimated GFR (>60 ml/min) 29 L BUN/Creatinine Ratio (7 - 25 %) 23.2 Phosphorus (2.5 - 4.5 mg/dL) 4.1 Magnesium (1.6 - 2.3 mg/dL) 2.0 Hematology CBC w Diff NO MAN DIFF REQ WBC (4.8 - 10.8 /CUMM) 5.7 RBC (4.20 - 5.40 /CUMM) 4.04 L Hgb (12.0 - 16.0 G/DL) 11.6 L Hct (37 - 47 %) 33.7 L MCV (81.0 - 99.0 FL) 83.3 MCH (27.0 - 31.0 PG) 28.7 MCHC (33.0 - 37.0 G/DL) 34.5 RDW (11.5 - 14.5 %) 13.4 Plt Count (130 - 400 /CUMM) 340 MPV (7.4 - 10.4 FL) 8.4 Gran % (42.2 - 75.2 %) 78.4 H Lymphocytes % (20.5 - 51.1 %) 13.8 L Monocytes % (1.7 - 9.3 %) 5.6 Eosinophils % (0 - 5 %) 2.1 Basophils % (0.0 - 2.0 %) 0.1 Absolute Granulocytes (1.4 - 6.5 /CUMM) 4.5 Absolute Lymphocytes (1.2 - 3.4 /CUMM) 0.8 L Absolute Monocytes (0.10 - 0.60 /CUMM) 0.3 Absolute Eosinophils (0.0 - 0.7 /CUMM) 0.1 Absolute Basophils (0.0 - 0.2 /CUMM) 0 Toxicology Tacrolimus Pending 01/06 01/06 01/06 01/06 1235 1000 0824 0529 Chemistry Sodium (137 - 145 mmol/L) 138 Cancelled Potassium (3.5 - 5.1 mmol/L) 3.9 Cancelled Chloride (98 - 107 mmol/L) 108 H Cancelled Carbon Dioxide (22 - 30 mmol/L) 14 L Cancelled Anion Gap (5 - 16) 16 Cancelled BUN (7 - 17 mg/dL) 40 H Cancelled Creatinine (0.5 - 1.0 mg/dL) 2.1 H Cancelled Estimated GFR (>60 ml/min) 26 L BUN/Creatinine Ratio (7 - 25 %) 19.0 Cancelled Lactic Acid (0.7 - 2.1 mmol/L) Cancelled 0.6 L Phosphorus (2.5 - 4.5 mg/dL) 5.2 H Magnesium (1.6 - 2.3 mg/dL) 2.0 Creatine Kinase (30 - 135 U/L) 44 01/06 01/05 0529 2330 Chemistry Sodium (137 - 145 mmol/L) 136 L Potassium (3.5 - 5.1 mmol/L) 3.8 Chloride (98 - 107 mmol/L) 111 H Carbon Dioxide (22 - 30 mmol/L) 8 *L Anion Gap (5 - 16) 17 H BUN (7 - 17 mg/dL) 41 H Creatinine (0.5 - 1.0 mg/dL) 2.1 H Estimated GFR (>60 ml/min) 26 L BUN/Creatinine Ratio (7 - 25 %) 19.5 Serum Osmolality (285 - 295 MOSM/KG) 287 Phosphorus (2.5 - 4.5 mg/dL) 5.4 H Magnesium (1.6 - 2.3 mg/dL) 1.4 L Hematology CBC w Diff MAN DIFF ORDERED WBC (4.8 - 10.8 /CUMM) 15.6 H RBC (4.20 - 5.40 /CUMM) 4.48 Hgb (12.0 - 16.0 G/DL) 13.1 Hct (37 - 47 %) 38.2 MCV (81.0 - 99.0 FL) 85.2 MCH (27.0 - 31.0 PG) 29.1 MCHC (33.0 - 37.0 G/DL) 34.2 RDW (11.5 - 14.5 %) 13.6 Plt Count (130 - 400 /CUMM) 336 MPV (7.4 - 10.4 FL) 8.6 Gran % (42.2 - 75.2 %) 93.2 H Lymphocytes % (20.5 - 51.1 %) 3.8 L Monocytes % (1.7 - 9.3 %) 2.9 Eosinophils % (0 - 5 %) 0.1 Basophils % (0.0 - 2.0 %) 0 Absolute Granulocytes (1.4 - 6.5 /CUMM) 14.5 H Segmented Neutrophils (42.2 - 75.2 %) 87 H Band Neutrophils (0.0 - 5.0 %) 4 Absolute Lymphocytes (1.2 - 3.4 /CUMM) 0.6 L Lymphocytes (20.5 - 51.1 %) 4 L Monocytes (1.7 - 9.3 %) 5 Absolute Monocytes (0.10 - 0.60 /CUMM) 0.4 Absolute Eosinophils (0.0 - 0.7 /CUMM) 0 Absolute Basophils (0.0 - 0.2 /CUMM) 0 Platelet Estimate (ADEQUATE) ADEQUATE Polychromasia 1+ Poikilocytosis 1+ Ovalocytes 1+ Konrad Cells FEW Elliptocytes FEW Other Body Source Fld Total RBCs Counted (%) 100 Urines Urine Test NEGATIVE 01/05 01/05 01/05 2330 2330 2226 Chemistry Sodium Cancelled Potassium Cancelled Chloride Cancelled Carbon Dioxide Cancelled Anion Gap Cancelled BUN Cancelled Creatinine Cancelled BUN/Creatinine Ratio Cancelled Glucose Cancelled Calcium Cancelled Toxicology Urine Opiates Screen (>2000 NG/ML) < 100 Methadone Screen (>300 NG/ML) < 40 Barbiturate Screen (>200 NG/ML) < 60 Ur Phencyclidine Scrn (>25 NG/ML) < 6.00 Amphetamines Screen (>1000 NG/ML) 208 U Benzodiazepines Scrn (>200 NG/ML) < 85 Urine Cocaine Screen (>300 NG/ML) < 50 Urine Cannabis Screen (>50 NG/ML) < 5.00 Urines Urinalysis MOD H Urine Color (YEL,AMB,STR) [place] Urine Clarity (CLEAR) HAZY H Urine pH (5.0 - 8.0) 6.0 Ur Specific [place] (1.001 - 1.035) >= 1.030 Urine Protein (NEG,<30 MG/DL) 30 H Urine Ketones (NEG) TRACE H Urine Nitrite (NEG) NEG Urine Bilirubin (NEG) NEG@ICTO Urine Urobilinogen (0.1 - 1.0 EU/dl) 0.2 Ur Leukocyte Esterase (NEG) TRACE H Ur Microscopic SEDIMENT EXAMINED Urine RBC (0 - 5 /HPF) 1-3 Urine WBC (0 - 2 /HPF) 10-15 H Ur Epithelial Cells (NONE,FEW) MOD H Urine Crystals 3+ CA OX H Urine Bacteria (NEG/NONE) MOD H Hyaline Casts (0/LPF) MANY H Urine Mucus (FEW,NONE) MOD H Urine Hemoglobin (NEG) NEG Urine Osmolality (300 - 1000 MOSM/KG) 389 Ur Random Creatinine (mg/dL) 378.7 Ur Random Sodium (30 - 90 mmol/L) < 5 L Ur Random Potassium (mmol/L) 12.7 Fraction Sodium Excret (<1% %) Urine Glucose (N MG/DL) NEG 01/05 1907 Chemistry Sodium (137 - 145 mmol/L) 132 L Cancelled Potassium (3.5 - 5.1 mmol/L) 3.9 Cancelled Chloride (98 - 107 mmol/L) 97 L Cancelled Carbon Dioxide (22 - 30 mmol/L) 12 L Cancelled Anion Gap (5 - 16) 23 H Cancelled BUN (7 - 17 mg/dL) 42 H Cancelled Creatinine (0.5 - 1.0 mg/dL) 3.2 H Cancelled Estimated GFR (>60 ml/min) 16 L BUN/Creatinine Ratio (7 - 25 %) 13.1 Cancelled Glucose (65 - 99 mg/dL) 116 H Cancelled Lactic Acid (0.7 - 2.1 mmol/L) Cancelled 2.2 H Calcium (8.4 - 10.2 mg/dL) 9.7 Cancelled Phosphorus (2.5 - 4.5 mg/dL) 7.6 H Magnesium (1.6 - 2.3 mg/dL) 1.5 L Total Bilirubin (0.2 - 1.3 mg/dL) 0.7 Cancelled AST (14 - 36 U/L) 23 Cancelled ALT (9 - 52 U/L) 33 Cancelled Alkaline Phosphatase (<127 U/L) 57 Cancelled Troponin I (< 0.11 ng/ml) < 0.01 Total Protein (6.3 - 8.2 g/dL) 7.5 Cancelled Albumin (3.5 - 5.0 g/dL) 4.4 Cancelled Globulin (1.9 - 4.2 gm/dL) 3.1 Cancelled Albumin/Globulin Ratio (1.1 - 2.2 %) 1.4 Cancelled Lipase (23 - 300 U/L) 133 Cancelled Hematology CBC w Diff MAN DIFF ORDERED WBC (4.8 - 10.8 /CUMM) 19.6 H RBC (4.20 - 5.40 /CUMM) 6.04 H Hgb (12.0 - 16.0 G/DL) 17.2 H Hct (37 - 47 %) 51.0 H MCV (81.0 - 99.0 FL) 84.5 MCH (27.0 - 31.0 PG) 28.5 MCHC (33.0 - 37.0 G/DL) 33.7 RDW (11.5 - 14.5 %) 13.4 Plt Count (130 - 400 /CUMM) 476 H MPV (7.4 - 10.4 FL) 8.3 Gran % (42.2 - 75.2 %) 93.4 H Lymphocytes % (20.5 - 51.1 %) 3.5 L Monocytes % (1.7 - 9.3 %) 3.1 Eosinophils % (0 - 5 %) 0 Basophils % (0.0 - 2.0 %) 0 Absolute Granulocytes (1.4 - 6.5 /CUMM) 18.3 H Segmented Neutrophils (42.2 - 75.2 %) 76 H Band Neutrophils (0.0 - 5.0 %) 13 H Absolute Lymphocytes (1.2 - 3.4 /CUMM) 0.7 L Lymphocytes (20.5 - 51.1 %) 6 L Monocytes (1.7 - 9.3 %) 5 Absolute Monocytes (0.10 - 0.60 /CUMM) 0.6 Absolute Eosinophils (0.0 - 0.7 /CUMM) 0 Absolute Basophils (0.0 - 0.2 /CUMM) 0 Platelet Estimate (ADEQUATE) INCREASED Poikilocytosis 101/05 1736 Chemistry Phosphorus Cancelled Magnesium Cancelled Assessment/Plan Assessment/Recommendations: ASSESSMENT: 1. Change in bowel habits 2. Diarrhea. Diarrhea appears secretory as patient has no change in stool output when in fasted state. Given chronic immunosuppressed state must be concerned regarding possiblity of CMV. Further only stool Ags were done. Given patient's recent travel a full O&P should be done. 3. Status post pancreas transplant for diabetes mellitus type 1 4. Chronic use immunosuppressant agents RECOMMENDATIONS: 1. Stool for O&P, viral culture, Stool Na, K, osmolality, fecal fat, fecal lactoferrin, occult blood 2. clear liquids 3. Prep with golytely 2 liters at 5 p.m. and 2 liters at 4 a.m. on Thursday morning. 4. NPO after second 2 liters on Thursday morning. 5. Tracrolimus Trough Level as you have done 6. Strict I/O 7. IV Fluids Consult Acknowledgment - Thank you for your consult request.
--- NOTE | 2018-01-07 18:04 | ECHOCARDIOGRAM REPORT ---
PATT ZUNIGA Age: 42 : 1975 Gender: F Exam Date: 01/06/2018 19:44 Exam Location: 2 [address] Ht (in): 67 Wt (lb): 161 BSA: 1.87 BP: 110 / 60 Ordering Physician: Analia Solorzano MD Referring Physician: Analia Solorzano MD Technologist: Tami Ponce [facility] Room Number: 232 Indications: PERICARDIAL EFFUSION Rhythm: Sinus Technical Quality: Good FINDINGS Left Ventricle Normal size left ventricle. Mild concentric left ventricular hypertrophy. Normal left ventricular ejection fraction visually estimated at >60%. No obvious regional wall motion abnormalities. Abnormal relaxation filling pattern of the left ventricle for age (stage 1 diastolic dysfunction). Right Ventricle Normal right ventricular size and function. Right Atrium Normal right atrial size. Left Atrium Normal left atrial size. Mitral Valve Mild mitral annular calcification. Trace mitral regurgitation. Aortic Valve Aortic valve mildly thickened.no aortic stenosis. No aortic regurgitation. Tricuspid Valve Tricuspid valve not well visualized, grossly normal. Mild tricuspid regurgitation. No evidence of pulmonary hypertension. Pulmonic Valve Pulmonic valve not well visualized, grossly normal. Pericardium Small pericardial effusion. No echo evidence of tamponade. Great Vessels Normal size aortic root. CONCLUSIONS Normal size left ventricle. Mild concentric left ventricular hypertrophy. Normal left ventricular ejection fraction visually estimated at > 60%. No obvious regional wall motion abnormalities. Abnormal relaxation filling pattern of the left ventricle for age (stage 1 diastolic dysfunction). Trace mitral regurgitation. Mild tricuspid regurgitation. Small pericardial effusion. No echo evidence of tamponade. Bj Kim M.D. (Electronically Signed) Final Date: 07 Jan 2018 18:04 MEASUREMENTS (Male / Female) Normal Values 2D ECHO LV Diastolic Diameter PLAX 3.5 cm 4.2 - 5.9 / 3.9 - 5.3 cm LV Systolic Diameter PLAX 2.2 cm 2.1 - 4.0 cm LV Fractional Shortening PLAX 37.1 % 25 - 46 % LV Ejection Fraction 2D Teich 68.1 % IVS Diastolic Thickness 1.4 cm LVPW Diastolic Thickness 1.4 cm LV Relative Wall Thickness 0.8 RV Internal Dim ED PLAX 2.3 cm 1.9 - 3.8 cm LVOT Diameter 2.1 cm Aortic Root Diameter 3.1 cm LA Systolic Diameter LX 3.0 cm 3.0 - 4.0 / 2.7 - 3.8 cm LA Volume 23.0 cm 18 - 58 / 22 - 52 cm Ascending Aorta Diameter 3.5 cm DOPPLER AV Peak Velocity 136.0 cm/s AV Peak Gradient 7.4 mmHg AV Mean Velocity 102.0 cm/s AV Mean Gradient 5.0 mmHg AV Velocity Time Integral 25.8 cm LVOT Peak Velocity 119.0 cm/s LVOT Peak Gradient 5.7 mmHg LVOT Mean Velocity 81.8 cm/s LVOT Mean Gradient 3.0 mmHg LVOT Velocity Time Integral 20.6 cm LVOT Stroke Volume 71.4 cm AV Area Cont Eq vti 2.8 cm AV Area Cont Eq pk 3.0 cm MV Peak Velocity 95.0 cm/s MV Peak Gradient 3.6 mmHg MV Mean Velocity 61.0 cm/s MV Mean Gradient 2.0 mmHg Mitral E Point Velocity 66.1 cm/s Mitral A Point Velocity 94.8 cm/s Mitral E to A Ratio 0.7 MV PHT Velocity 79.9 cm/s MV Deceleration [place] 318.0 cm/s MV Pressure Half Time 75.4 ms MV Area PHT 2.9 cm MV Deceleration Time 357.0 ms TR Peak Velocity 261.0 cm/s TR Peak Gradient 27.2 mmHg Right Atrial Pressure 5.0 mmHg Pulmonary Artery Systolic Pressu 32.2 mmHg Right Ventricular Systolic Press 32.2 mmHg PV Peak Velocity 126.0 cm/s PV Peak Gradient 6.4 mmHg PV Mean Velocity 89.7 cm/s PV Mean Gradient 4.0 mmHg PV Velocity Time Integral 20.4 cm LV E' Lateral Velocity 10.4 cm/s Mitral E to LV E' Lateral Ratio 6.4 LV E' Septal Velocity 5.6 cm/s Mitral E to LV E' Septal Ratio 11.9
[2018-01-07 22:17] VITALS: BP 108/60
[2018-01-08 06:00] VITALS: BP 118/66
--- NOTE | 2018-01-08 08:52 | PN- Housestaff ---
Rashad TODD,[facility] 01/08/18 0852: Subjective Follow-up For: Acute gastritis Subjective: seen and examined. Was refusing a colonoscopy. However was convinced by me and Dr. Hamilton so she decided to go forward with that. If the results are clear she can be discharged today. Review of Systems Constitutional: Reports: see HPI. Objective Last 24 Hrs of Vital Signs/I&O Vital Signs Date Time Temp Pulse Resp B/P B/P Pulse O2 O2 Flow FiO2 Mean Ox Delivery Rate 01/08 08 Room Air 01/08 06 97.5 68 15 118/66 97 Room Air 01/07 2217 97.9 85 16 108/60 96 Room Air Intake & Output 01/08 1600 01/08 0800 01/08 0000 Intake Total 240 800 675 Output Total Balance 240 800 675 Intake, IV 375 Intake, Oral 240 800 300 Patient 161 lb 161 lb Weight Physical Exam General Appearance: Alert, Oriented X3, Cooperative Cardiovascular: Normal S1, Normal S2 Lungs: Clear to Auscultation Abdomen: Normal Bowel Sounds, Soft Neurological: Normal Speech Current Medications: Current Medications Sig/Jaqui Start time Last Medication Dose Route Stop Time Status Admin Acetaminophen 650 MG Q6P PRN 01/06 0045 DCD PO Acetaminophen 1,000 MG Q6P PRN 01/06 0045 DCD IV Bupropion HCl 150 MG QPM 01/06 2100 DCD 01/07 PO 2044 Chlorhexidine 1 GM .STK-MED ONE 01/08 1456 DC Gluconate TOP 01/08 1457 Citalopram 20 MG DAILY 01/06 0900 DCD 01/08 Hydrobromide PO 0918 Heparin Sodium 5,000 UNIT Q8 01/06 06 DCD 01/07 (Porcine) SC 1435 Loperamide HCl 2 MG Q6P PRN 01/07 1100 DCD 01/07 PO 1556 Mycophenolate Mofetil 250 MG BID 01/06 0900 DCD 01/08 PO 0919 Patient Medication 1 ED ONE ONE 01/08 1545 DC Teaching ED 01/08 1546 Polyethylene Glycol 0.5 GAL 1700,0400 01/07 1730 DC 01/08 PO 01/08 0401 0407 Potassium Chloride 40 MEQ BID 01/07 1333 DC 01/07 PO 01/07 2101 2044 Prednisone 5 MG DAILY 01/07 1730 DCD 01/08 PO 0918 Sodium Bicarbonate 75 MEQ Q8H 01/08 1115 DCD Sodium Chloride 1,000 ML IV 01/08 1914 Sodium Bicarbonate 75 MEQ Q8H 01/07 1400 DC 01/07 Sodium Chloride 1,000 ML IV 01/07 2159 1435 Tacrolimus 6 MG BID 01/07 2100 DCD 01/08 PO 0919 Last 24 Hrs of Lab/Elan Results Last 24 Hrs of Labs/Mics: Laboratory Tests 01/08/18 0740: Anion Gap 10, Estimated GFR 26 L, BUN/Creatinine Ratio 21.4, Lipase 31 01/07/18 2353: Ref Lab Test Result Pending, Ref Lab Test Result Pending, Ref Lab Test Result Pending, Stool Lactoferrin Pending Microbiology 01/07 2353 STOOL: Ova and Parasite Macroscopic Exam - RECD Assessment/Plan Assessment: Ms Lance is a 42 year old woman w/ a PMHx of type 1 DM, pancreatic transplantation at [facility] in 2017, nephrolithiasis came to the ER w/ a chief concern of diarrhea that started one day after she returned from a trip to [facility] She is being treated and evaluated for following conditions #Acute viral gastroenteritis Patient was septic on presentation with a tachycardia, leukocytosis, bandemia source of infection, lactic acidosis. Her gastroenteritis appears most likely to be viral in origin. -Monitor fever and WBC curve -Stool cultures, ova and parasites negative -Cdiff negative -Can use Tylenol when necessary for fever -Continue to monitor off antibiotics -Anti-emetic PRN -Loperamide 2 mg every 6 -Patient is to go for colonoscopy today. Colonoscopy is clear patient can be discharged home today. #TOM improving Likely secondary to dehydration because of diarrhea (prerenal) -Aggressive fluid hydration -Creatinine improved from 3.2 to 2.1 to 1.9 to 2.1 #Mild pericardial effusion -Echocardiogram for further evaluation of mild pericardial effusion noted on CT abdomen pelvis one diastolic dysfunction #Metabolic acidosis-resolved Likely secondary to lactic acidosis and renal failure, along with GI losses of bicarbonate. So its likely that the metabolic acidosis was combination of anion gap and non-anion gap metabolic acidosis -Lactic acidosis has resolved and the gap has Closed -Patient presented with bicarbonate of 12 which dropped further down to 8 after fluid resuscitation and has improved to 23 #H/o pancreas transplant I talked to patient's transplant team who recommended continuing tacrolimus at 6 mg twice a day and Celexa at the home dose. Patient will require weekly labs for monitoring of BEP and she will follow-up with her team on January 21 -tacrolimus level pending #Hyponatremia resolved Likely secondary to hypovolemic hyponatremia -Resolved #Hyperchloremia resolved Likely secondary to normal saline infusion aggressive fluid hydration -Resolved #Hyperphosphatemia resolved Likely secondary to TOM -Resolved #Hypomagnesemia resolved secondary to ongoing diarrhea -Repleted and resolved #Hypokalemia-resolved Probably due to ongoing diarrhea FC/DVT prophylaxis with subcutaneous heparin/diet as tolerated Problem List: 1. Gastroenteritis Pain Ratin Pain Location: n/a Pain Goal: Pain 4 or less Pain Plan: prn Tomorrow's Labs & Rationales: barrera Hamilton MD,Radha 01/08/18 1135: Attending MD Review Statement Attending Statement Attending MD Statement: examined this patient, discuss w/resident/PA/[employer] SALESPERSON, agreed w/resident/PA/[employer] SALESPERSON, reviewed EMR data (avail), discussed with nursing, discussed with case mgmt, amended to note Attending Assessment/Plan: Patient seen and examined. No issues overnight reported by nursing staff. Remains afebrile and hemodynamically stable. Resting comfortably and not in any acute distress. She reports that her diarrhea has resolved. She is very eager to go home today. She did not want to complete the bowel prep or undergo colonoscopy today. She reports feeling much better. Denies nausea vomiting. Denies abdominal pain. On examination abdomen is soft and nontender with normal bowel sounds. Problems: 1. Acute kidney injury; likely prerenal from volume depletion. Likely complicated by NSAID use and use of tacrolimus. 2. Enteritis with profuse diarrhea; now resolved 3. Status post pancreatic transplant for type 1 diabetes. Plan: -Creatinine has stabilized at this 0.1 over the past 24 hours. Potassium level has corrected. I did discuss with her transplant service yesterday. Recommendations are to continue tacrolimus at 6 mg orally twice daily. -She is scheduled to undergo colonoscopy today. She however did not complete a bowel prep. She was very reluctant to undergo the procedure today. I was able to convince the patient to get it done while she is in hospital. Follow-up recommendations of the gastroenterology service postprocedure. -Lipase level has trended down to 31. Patient should follow-up with the transplant service following discharge. -Following colonoscopy today patient may be discharged home if no further intervention recommended by the gastroenterology service. -Leukocytosis has resolved. Hemoglobin level has also trended down however this is likely due to hemoconcentration on presentation. She has no clinical evidence of bleeding.
[2018-01-08] MEDS ORDERED: LOPERAMIDE2 M2 PO (11:18)
--- NOTE | 2018-01-08 15:17 | Proc Note Colonoscopy ---
Colonoscopy Procedure Procedure Date: 01/08/18 Procedure Type: colonoscopy w/biopsy Information Security Officer: Dwayne Marie M.D. ASA Classification: II Indications: Diarrhea in an immunosuppressed patient Instrument (Colonoscope): single channel Meds Received: MAC Patient's Tolerance: good Complications: none Extent Reached: terminal ileum Prep: incomplete, with scattered solid stool Procedure: The patient signed informed consent, was placed in the Prather position, and medicated. Examination of the rectum was normal. There were no anal or perianal lesions. The Olympus high-definition variable stiffness colonoscope was inserted through the anus and advanced to the terminal ileum. Retroflexion was performed in order to examine the rectum. Careful examination was performed. There was adequate withdrawal time. Findings: There were hypertrophied anal papilla. The rectum was otherwise normal. In the rectosigmoid there were foci of mild erythema. There were no areas of erosion, granularity, friability, and no exudate. The mucosa, folds and vasculature of the remainder of the colon to the base of the cecum (except where obscured by stool) were normal, without gross colitis. No polyps were identified. The terminal ileum was normal. Biopsies were obtained from rectum, rectosigmoid, left colon, right colon and terminal ileum (including for CMV). Impression: * No gross colitis aside from mild rectosigmoid scattered erythema. Recommendations: * Await pathology (including CMV) * The patient may be discharged today on a regular diet, with Imodium when necessary. * Follow up in our office if diarrhea persists. CC: Alfonso TODD,Radha; Alpesh TODD,Chi; Chandan TODD,[facility]
--- NOTE | 2018-01-11 15:38 | Discharge Summary ---
Hospital Course Allergies: Coded Allergies: amoxicillin (Intermediate, RASH 11/03/17) Discharge Instructions Medications at Discharge Discharge Medications: Continue taking these medications: Ibuprofen (Ibuprofen) 800 MG TABLET 1 Tablet ORAL THREE TIMES DAILY as needed for pain/fever Qty = 30 Comments: NOT GIVEN IN HOSPITAL Mycophenolate Mofetil (Cellcept) 250 MG CAPSULE 1 Capsule ORAL TWICE DAILY Comments: Last Taken: 01/08/18 Time: 9:19 AM Tacrolimus (Prograf) 1 MG CAPSULE 6 Capsule ORAL TWICE DAILY Comments: Last Taken: 01/08/18 Time: 9:19 AM Citalopram Hydrobromide (Celexa) 20 MG TABLET 1 Tablet ORAL DAILY Comments: Last Taken: 01/08/18 Time: 9:18 AM Bupropion HCl (Wellbutrin Sr) 150 MG TABLET.ER 1 Tablet ORAL Every night Comments: Last Taken: 01/07/18 Time: 8:44 PM Cyanocobalamin (Vitamin B-12) (Vitamin B12) 2,500 MCG TAB.CHEW 1 Tablet ORAL DAILY Comments: NOT GIVEN IN HOSPITAL
== END 2018-01-08 16:50 | DRG 720 ==
LOC: ERH 17:28 → 2NA 01-06 01:06 → ERHI 01-06 01:06 → ENRESERV 01-06 09:06 → ENTRNSPT 01-06 10:55 → EDTRNSPT 01-06 11:01 → EDTRNSPTSTS 01-06 11:01 → 2NA 01-06 11:10 → CMPTRNSPT 01-06 11:33 → 2NA 01-08 16:50
PROVIDERS: Internal Medicine Endocrinology, Diabetes & Metabolism; Physician Assistant
PROC: 0DBN8ZX Excision of Sigmoid Colon, Via Natural or Artificial Opening Endoscopic, Diagnostic (ICD-10-PCS; principal; 2018-01-08)
PROC: 0DBF8ZX Excision of Right Large Intestine, Via Natural or Artificial Opening Endoscopic, Diagnostic (ICD-10-PCS; principal; 2018-01-08)
PROC: 0DBB8ZX Excision of Ileum, Via Natural or Artificial Opening Endoscopic, Diagnostic (ICD-10-PCS; principal; 2018-01-08)
PROC: 0DBG8ZX Excision of Left Large Intestine, Via Natural or Artificial Opening Endoscopic, Diagnostic (ICD-10-PCS; principal; 2018-01-08)
PROC: 0DBP8ZX Excision of Rectum, Via Natural or Artificial Opening Endoscopic, Diagnostic (ICD-10-PCS; principal; 2018-01-08)
DX: A41.9 Sepsis, unspecified organism (principal); A08.4 Viral intestinal infection, unspecified; Z94.83 Pancreas transplant status; E87.2 Acidosis; E86.0 Dehydration; N17.9 Acute kidney failure, unspecified; E10.319 Type 1 diabetes mellitus with unspecified diabetic retinopathy without macular edema; E87.1 Hypo-osmolality and hyponatremia; R65.20 Severe sepsis without septic shock; E83.42 Hypomagnesemia; E83.39 Other disorders of phosphorus metabolism; E87.8 Other disorders of electrolyte and fluid balance, not elsewhere classified; E87.6 Hypokalemia; Z98.84 Bariatric surgery status; Z88.1 Allergy status to other antibiotic agents
CPT/HCPCS: 2NAP; 84133; 84300; 36415; 36592; 74176; 80307; 81001; 81025; 82436; 82570; 83630; 87015; 87040; 87045; 87328; 87329; 87899; 87899-59; 93005; 93010; 93306; 96374; 96375; 99291; J0696; J1644; J3490; J7060; J7512; J7517